=== PATIENT | female | born 1940 | race Caucasian/White ===

== ENCOUNTER → 2021-07-18 11:22 | Outpatient (CLI) | payer MEDICARE, SELFPAY ==
--- NOTE | 2021-07-18 11:33 | XR_ITS ---
FINAL REPORT CLINICAL HISTORY: HIP PAIN, no injury FINDINGS: RIGHT HIP Two views of the right hip including an AP pelvis demonstrate no acute fracture or dislocation. The joint spaces appear normal. The visualized bony structures are well aligned. No soft tissue abnormality is seen. IMPRESSION: No acute bony abnormality. Reviewed, Interpreted and Dictated by Shorty Ochoa MD Transcribed by Kaila Young Authenticated by Shorty Ochoa MD on 07/18/2021 12:57:[address] [facility]
== END ==
PROVIDERS: PCP Family Medicine; Visit Provider Family Medicine
DX: M70.61 Trochanteric bursitis, right hip (principal)
CPT/HCPCS: 73502

== ENCOUNTER → 2021-10-21 12:32 | Outpatient (CLI) | payer MEDICARE, SELFPAY ==
--- NOTE | 2021-10-21 12:58 | US_ITS ---
FINAL REPORT CLINICAL HISTORY: Edema,pain and redness for 2 years. Claudication FINDINGS: ANKLE-BRACHIAL PRESSURE INDICES Pressure indices are as follows: RIGHT LOWER EXTREMITY: Ankle-brachial pressure index: 1.2 Comments: Normal LEFT LOWER EXTREMITY: Ankle-brachial pressure index: 1.1 Comments: Normal Note is made that the thighs were noncompressible which may be due to calcified vessels. CONCLUSION: No evidence of significant obstructive peripheral vascular disease of the lower extremities Reviewed, Interpreted and Dictated by Garret Lowe III, MD Transcribed by Kaila Young Authenticated and . [facility]
== END ==
PROVIDERS: PCP Family Medicine; Visit Provider Family Medicine
DX: I70.213 Atherosclerosis of native arteries of extremities with intermittent claudication, bilateral legs (principal)
CPT/HCPCS: 93923

== ENCOUNTER → 2021-11-06 09:39 | Outpatient (CLI) | payer MEDICARE, SELFPAY ==
[2021-11-06 10:27] LABS: Basophils % 1.1 % (0.1-2.0); Eosinophils # 0.4 K/mm3 (0.0-0.4); Eosinophils % 9.8 % (0.1-12.0); Hematocrit 40.8 % (37.0-47.0); Hemoglobin 12.6 g/dL (12.2-16.2); Lymphocytes # 0.9 K/mm3 (0.7-4.5); Lymphocytes % 22.4 % (10-50); Mean Corpuscular HGB Conc 30.9 g/dL (31.8-35.4); Mean Corpuscular Hemoglobin 30.7 pg (27.0-31.2); Mean Corpuscular Volume 99.2 fl (81-99); Mean Platelet Volume 8.9 fl (7.4-10.4); Monocytes # 0.4 K/mm3 (0.1-1.0); Monocytes % 10.1 % (1.7-9.3); Neutrophils # 2.3 K/mm3 (1.8-7.8); Neutrophils % 56.5 % (37.0-80.0); Platelet Count 212 K/mm3 (142-424); Red Blood Count 4.11 M/mm3 (4.20-5.40); Red Cell Distribution Width 13.3 % (11.5-17.5)
[2021-11-06 10:51] LABS: Blood Urea Nitrogen 15 mg/dl (7-17); Estimated Glomerular Filt Rate 60 ml/min (>60); GFR (African American) 73 ML/MIN (>60)
[2021-11-06 11:56] LABS: Vitamin B12 830 pg/mL (239-931)
[2021-11-06 11:59] LABS: Folate > 20.00 ng/mL
[2021-11-07 15:10] LABS: Albumin 3.5 g/dL (2.9-4.4); Alpha-1-Globulin 0.3 g/dL (0.0-0.4); Alpha-2-Globulin 0.9 g/dL (0.4-1.0); Gamma Globulin 0.8 g/dL (0.4-1.8); Protein, Total 6.4 g/dL (6.0-8.5)
== END ==
PROVIDERS: PCP Family Medicine; Visit Provider Specialist
DX: G62.9 Polyneuropathy, unspecified (principal)
CPT/HCPCS: 36415; 82565; 82607; 82746; 84155; 84165; 84520; 85025

== ENCOUNTER 2024-03-09 09:35 | Emergency (ER) | payer MEDICARE, SELFPAY ==
[2024-03-09] VITALS (8 sets, daily range): BP systolic 120–163; BP diastolic 61–103; PULSE 80–94; RESP 16–18; TEMP 36.6–36.9; O2SAT 96–98; BMI 28.8
--- NOTE | 2024-03-09 10:04 | ED_ITS ---
Discharge Plan Prescriptions Prescriptions: New cephalexin 500 mg capsule 500 mg PO QID 5 Days Qty: 20 0RF famotidine 20 mg tablet 20 mg PO BID PRN (Reason: rash) 3 Days Qty: 6 0RF Discontinued azithromycin [Zithromax] 250 mg tablet 250 mg PO UD DOSE PK Qty: 6 0RF Rx Instructions: Take two (2) tablets today, then one (1) tablet days #2 thru #5 No Action omega 8-lwd-cti-fish oil [Fish Oil] 1,200 (144-216) mg capsule 1 cap PO DAILY multivitamin [Daily Multi-Vitamin] Tablet 1 tab PO DAILY magnesium oxide 400 mg magnesium capsule 400 mg PO DAILY Caltrate-D3 Plus Minerals 300 mg-800 unit -25 mg-0.5 mg tablet 1 tab PO DAILY dorzolamide-timolol 22.3-6.8 mg/mL drops 1 drp OP BID carboxymethylcellulose sodium [Refresh Tears] 0.5 % drops 1 drp OP BID metolazone 2.5 mg tablet 2.5 mg PO DAILY brimonidine 0.2 % drops See Rx Instructions .ROUTE .COMPLEX Patient Comments: INSTILL 1 DROP INTO EACH EYE EVERY 12 HOURS Rx Instructions: INSTILL 1 DROP INTO EACH EYE EVERY 12 HOURS mirabegron [Myrbetriq] 25 mg tablet extended release 24 hr 25 mg PO DAILY Patient Comments: TAKE 1 TABLET BY MOUTH ONCE DAILY prednisone 10 mg tablet 10 mg PO DIRECTED 9 Days Qty: 21 0RF Rx Instructions: Take 4 tablets daily for 3 days, then take 2 tablets daily for 3 days, then take 1 tablet daily for 3 days, then stop. benzonatate 100 mg capsule 100 mg PO TIDP PRN (Reason: Cough) Qty: 30 0RF Referrals Follow up/Referrals: Provider,Referral, MD [Primary Care Provider] - See instructions Activity Restrictions/Add. Instructions Additional Instructions/Restrictions: As we discussed, it appears that your rash is due to the medication called Bactrim, it is possible that the reaction is specifically due to sulfa medication. Please discontinue the Bactrim, we have disposed of it in the emergency department. I have prescribed a different antibiotic for you to take to complete your course for the wound on your leg. I have prescribed a medication called famotidine which can help with your rash. Please follow-up with your primary care doctor. Please return with any new or worsening symptoms. Clinical Impressions Clinical Impression: Fall from standing, Drug eruption Print Language Print Language: Hebrew Discharge ED Provider: Kael Polk Adult HPI General Chief complaint: Fall Stated complaint: Fall Time Seen by Provider: 03/09/24 10:04 Mode of Arrival: EMS Source of Information: Patient and EMS Limitations: No Limitations Description of Symptoms (Recalled from ER Triage Doc. by RN): pt presents to ED from home via ems for fall and wound on right acuña. pt c/o right hip pain. pt reports she got tripped and had a fall. pt was given abx two days ago for leg wound. pt reports today she took abx this am and began to break out in rash. History of Present Illness HPI narrative: The patient presents with a chief complaint of experiencing a fall at home. She reports having a couple of bruises over her knees but is unsure of the exact cause of the fall. The patient mentions a small dog possibly being involved, stating There's a little dog I think is stuck in front of me. She denies hitting her head during the fall. The patient complains of pain in her leg, particularly around the knee area, and also reports pain in her hip area when asked. She denies any neck pain, numbness, or tingling in her legs. The patient states she is Just checking to make sure I'm okay following the fall. The patient has no known allergies to antibiotics and reports no itching or other symptoms. Please note that above description of symptoms, in this electronic medical record under categorization of recalled from ER triage doctor by RN are reflective of an initial nursing assessment, however, is not reflective of my full history and physical exam that was personally taken and clarified. Consequentially, this preceding description of symptoms, which may include the patient's categorized chief complaint in the EMR, do not reflect my personal clinical impression, and the ultimate description of history of present illness and patient stated complaints should be deferred to this section of the note. Unless stated otherwise or congruent with this section of the note, additional signs, symptoms, or incongruence should be interpreted as inaccurate with my clinical impression. Related Data Home Medications ?Medication ?Instructions ?Recorded ?Confirmed calcium 300 mg-D3 20 mcg-magnesium 1 tab PO DAILY 11/06/21 09/25/23 25 mg-coppr 0.5 vy-icop-hawz tablet (Caltrate-D3 Plus Minerals) carboxymethylcellulose sodium 0.5 1 drp ophthalmic (eye) BID 11/06/21 09/25/23 % eye drops (Refresh Tears) dorzolamide 22.3 mg-timolol 6.8 1 drp ophthalmic (eye) BID 11/06/21 09/25/23 mg/mL eye drops magnesium oxide 400 mg PO DAILY 11/06/21 09/25/23 metolazone 2.5 mg tablet 2.5 mg PO DAILY 11/06/21 09/25/23 multivitamin (Daily Multi-Vitamin 1 tab PO DAILY 11/06/21 09/25/23 tablet) omega 8-owl-qjy-fish oil 1,200 mg 1 cap PO DAILY 11/06/21 09/25/23 (144 mg-216 mg) capsule (Fish Oil) brimonidine 0.2 % eye drops See Rx Instructions .Route .COMPLEX 09/25/23 09/25/23 mirabegron 25 mg tablet,extended 25 mg PO DAILY 09/25/23 09/25/23 release 24 hr (Myrbetriq) Previous Rx's ?Medication ?Instructions ?Recorded benzonatate 100 mg capsule 100 mg PO TIDP PRN Cough #30 caps 09/25/23 prednisone 10 mg tablet 10 mg PO DIRECTED 9 days #21 09/25/23 tabs cephalexin 500 mg capsule 500 mg PO QID 5 days #20 caps 03/09/24 famotidine 20 mg tablet 20 mg PO BID PRN rash 3 days #6 03/09/24 tabs Allergies Allergy/AdvReac Type Severity Reaction Status Date / Time sulfamethoxazole (From Allergy Rash Verified 03/09/24 12:50 Bactrim) trimethoprim (From Bactrim) Allergy Rash Verified 03/09/24 12:50 PFSH PFSH Disclaimer: The information contained in this section may have been updated after the patient was seen, as this information can be updated by other users. Social History Smoking Status: Never smoker alcohol intake: never substance use type: denies use current occupational status: retired Travel in the last 8 weeks: Inside the [place] household members: family housing: house Other Medical History Have you received the Pneumonia Vaccine: No ROS Obtained: Yes other As per HPI Physical Exam General General appearance: alert and in no apparent distress Head Head exam: atraumatic and normocephalic Eye Eye exam: Present normal appearance Neck Neck exam: Present normal inspection Chest Chest inspection: Present normal inspection and symmetric chest wall rise Respiratory Respiratory exam: Present normal lung sounds bilaterally; Absent respiratory distress Cardiovascular Cardiovascular exam: Present regular rate and normal rhythm Abdominal Exam Abdominal exam: Present soft Neurological Exam Neurological exam: Present alert and oriented X3 Psychiatric Psychiatric exam: Present normal affect and normal mood Skin Skin exam: Present warm and dry Other Other exam information: Diffuse rash on abdominal and chest wall area consistent with drug eruption, sparing mucous membranes, area of shallow ulceration and surrounding erythema on right ventral leg. No overt focal bony tenderness to palpation. No clinical evidence of trauma above the clavicles. Patient at baseline per family member who later presents to bedside Medical Decision Making Medical Records Medical records reviewed: Yes I reviewed the patient's medical records. Screening: Per USPSTF and CDC recommendations, given the prevalence of disease in our region, it is our hospital?s policy to screen for HIV and viral Hepatitis for all patients aged 18 and over and those with ongoing risk factors. Jah Inquiry Pt receiving controlled substance: No Vital Signs: 03/09/24 09:35 03/09/24 10:00 03/09/24 10:30 Temperature 98.4 F Temperature Source Oral Pulse Rate 90 84 Pulse Rate [Left Radial] 94 H Respiratory Rate 16 Blood Pressure 163/81 H 152/70 H Blood Pressure [Right Arm] 133/103 H Blood Pressure Mean 109 Blood Pressure Mean [Right Arm] 113 02 Sat by Pulse Oximetry 98 98 97 Oxygen Delivery Method Room Air Room Air Room Air 03/09/24 11:00 03/09/24 11:30 03/09/24 12:00 Temperature Temperature Source Pulse Rate 80 81 86 Pulse Rate [Left Radial] Respiratory Rate Blood Pressure 148/69 H 137/68 138/68 Blood Pressure [Right Arm] Blood Pressure Mean 98 95 Blood Pressure Mean [Right Arm] 02 Sat by Pulse Oximetry 97 98 98 Oxygen Delivery Method Room Air Room Air Room Air 03/09/24 12:30 03/09/24 13:25 Temperature 98 F Temperature Source Pulse Rate 87 89 Pulse Rate [Left Radial] Respiratory Rate 18 Blood Pressure 139/72 120/61 Blood Pressure [Right Arm] Blood Pressure Mean Blood Pressure Mean [Right Arm] 02 Sat by Pulse Oximetry 98 Oxygen Delivery Method Room Air Lab Data Lab Results 03/09/24 09:37: HIV 1&2 Antibody Rapid Nonreactive Orders (Tests/Meds): ED MEDICATIONS Discontinued Medications Generic Name Dose Route Start Last Admin Trade Name Anne PRN Reason Stop Dose Admin Acetaminophen 1,000 mg 03/09/24 12:20 03/09/24 12:25 Acetaminophen 500mg Tab PO 03/09/24 12:21 1,000 mg ONCE ONE Administration Ibuprofen 400 mg 03/09/24 12:20 03/09/24 12:25 Ibuprofen 400 Mg Tablet PO 03/09/24 12:21 400 mg ONCE ONE Administration ORDERS Category Date Time Status Knee XR right 3 views [XR knee RT 3V] Stat Exams 03/09/24 10:12 Completed XR ankle RT min 3V Stat Exams 03/09/24 10:12 Completed XR femur RT 2V Stat Exams 03/09/24 10:12 Completed XR hip RT 2-3V w/pelvis Stat Exams 03/09/24 10:12 Completed XR tibia fibula RT 2V Stat Exams 03/09/24 10:12 Completed HIV (1&2) Antibody Rapid Stat Lab 03/09/24 09:37 Completed Medical Decision Narrative: Patient with history and exam per above presenting for evaluation of nonfocal leg pain after fall, as well as rash Diagnoses considered include drug eruption, likely precipitated by trimethoprim/sulfamethoxazole which was recently initiated for cellulitis, cellulitis, fracture, no clinical evidence of trauma to the head or neck ED workup and treatment included: ED MEDICATIONS Discontinued Medications Generic Name Dose Route Start Last Admin Trade Name Anne PRN Reason Stop Dose Admin Acetaminophen 1,000 mg 03/09/24 12:20 03/09/24 12:25 Acetaminophen 500mg Tab PO 03/09/24 12:21 1,000 mg ONCE ONE Administration Ibuprofen 400 mg 03/09/24 12:20 03/09/24 12:25 Ibuprofen 400 Mg Tablet PO 03/09/24 12:21 400 mg ONCE ONE Administration ORDERS Category Date Time Status Knee XR right 3 views [XR knee RT 3V] Stat Exams 03/09/24 10:12 Completed XR ankle RT min 3V Stat Exams 03/09/24 10:12 Completed XR femur RT 2V Stat Exams 03/09/24 10:12 Completed XR hip RT 2-3V w/pelvis Stat Exams 03/09/24 10:12 Completed XR tibia fibula RT 2V Stat Exams 03/09/24 10:12 Completed HIV (1&2) Antibody Rapid Stat Lab 03/09/24 09:37 Completed Imaging was independently visualized and interpreted by me, significant for no acute findings Please refer to radiology report for full details. My clinical impression at this time is most consistent with drug eruption, upon repeat evaluation patient denies any pain in her reportedly affected extremity. I discussed my clinical impression with patient and answered all questions. At this time, the evidence for any other entities in the differential is insufficient to warrant any further testing or ED observation. This was explained to the patient. The patient was advised that persistent or worsening symptoms require further evaluation. Critical Care Critical Care Time Critical Care Time: No
--- NOTE | 2024-03-09 10:05 | PC.NURSE ---
Daughter at BS
--- NOTE | 2024-03-09 10:12 | XR_ITS ---
PROCEDURE INFORMATION: Exam: XR Right Ankle Exam date and time: 03/09/2024 11:53 AM Age: 83 years old Clinical indication: Injury or trauma; Fall; Other: Pain; Additional info: Fall, reported hip, leg pain, nonfocal, HX dementi TECHNIQUE: Imaging protocol: Radiologic exam of the right ankle. Views: 3 or more views. COMPARISON: CR XR TIBIA FIBULA RT 2V 03/09/2024 11:53 AM FINDINGS: Bones/joints: Osseous structures are intact. No fracture or malalignment. Visualized joint surfaces are preserved. Soft tissues: Unremarkable. IMPRESSION: Negative exam. No acute bony abnormalities.
--- NOTE | 2024-03-09 10:12 | XR_ITS ---
PROCEDURE INFORMATION: Exam: XR Right Hip Exam date and time: 03/09/2024 11:53 AM Age: 83 years old Clinical indication: Injury or trauma; Fall; Other: Pain; Additional info: Fall, reported hip, leg pain, nonfocal, HX dementi TECHNIQUE: Imaging protocol: Radiologic exam of the right hip. Views: 2 or 3 views hip with pelvis when performed. COMPARISON: CR XR FEMUR RT 2V 03/09/2024 11:53 AM FINDINGS: Limited: Study is suboptimal due to obscuring overlying extraneous structure presumed to represent a catheter. Bones/joints: Mild degenerative changes right hip joint consisting of mild joint space narrowing and subchondral sclerosis. No fracture or malalignment. Soft tissues: Unremarkable. IMPRESSION: Mild degenerative changes right hip joint. No acute bony abnormalities.
--- NOTE | 2024-03-09 10:12 | XR_ITS ---
PROCEDURE INFORMATION: Exam: XR Right Femur Exam date and time: 03/09/2024 11:53 AM Age: 83 years old Clinical indication: Injury or trauma; Fall; Other: Pain; Additional info: Fall, reported hip, leg pain, nonfocal, HX dementi TECHNIQUE: Imaging protocol: Radiologic exam of the right femur. Views: 2 views. COMPARISON: CR XR HIP RT 2-3V W/PELVIS 03/09/2024 11:53 AM FINDINGS: Bones/joints: Unremarkable. No fracture, malalignment or deformity detected. No significant degenerative joint changes. Soft tissues: Unremarkable. IMPRESSION: Normal exam.
--- NOTE | 2024-03-09 10:12 | XR_ITS ---
PROCEDURE INFORMATION: Exam: XR Right Knee Exam date and time: 03/09/2024 11:53 AM Age: 83 years old Clinical indication: Injury or trauma; Fall; Other: Pain; Additional info: Fall, reported hip, leg pain, nonfocal, HX dementi TECHNIQUE: Imaging protocol: Radiologic exam of the right knee. Views: 3 views. COMPARISON: CR XR ANKLE RT MIN 3V 03/09/2024 11:53 AM FINDINGS: Bones/joints: There are moderate degenerative changes involving the medial and lateral knee compartments as well as the patellofemoral joint with joint space narrowing, subchondral sclerosis and mild marginal spurring. Findings are most pronounced within the medial knee compartment. There is no fracture, dislocation, malalignment or underlying osseous lesion detected. Soft tissues: No significant joint effusion. IMPRESSION: Moderate tricompartmental osteoarthritis. No acute bony abnormalities.
--- NOTE | 2024-03-09 10:12 | XR_ITS ---
PROCEDURE INFORMATION: Exam: XR Right Tibia and Fibula Exam date and time: 03/09/2024 11:53 AM Age: 83 years old Clinical indication: Injury or trauma; Fall; Other: Pain; Additional info: Fall, reported hip, leg pain, nonfocal, HX dementi TECHNIQUE: Imaging protocol: Radiologic exam of the right tibia and fibula. Views: 2 views. COMPARISON: CR XR ANKLE RT MIN 3V 03/09/2024 11:53 AM FINDINGS: Bones/joints: Osseous structures are intact. No fracture or malalignment. Visualized joint surfaces are preserved. Soft tissues: Unremarkable. IMPRESSION: Negative exam. No acute bony abnormalities.
[2024-03-09 11:54] LABS: HIV (1&2) Antibody Rapid NONREACTIVE (NONREACTIVE)
--- NOTE | 2024-03-09 11:58 | PC.NURSE ---
XR AT BEDSIDE
[2024-03-09] MEDS: IBUPROFEN 400 MG TABLET PO (12:25)
[2024-03-09] MEDS: ACETAMINOPHEN 500MG TAB 1000 MG PO (12:25)
== END 2024-03-09 13:26 | disposition home or self-care (01) ==
PROVIDERS: Emergency Provider Emergency Medicine
DX: L27.0 Generalized skin eruption due to drugs and medicaments taken internally (principal); R21 Rash and other nonspecific skin eruption; M25.551 Pain in right hip; M25.561 Pain in right knee; W01.0XXA Fall on same level from slipping, tripping and stumbling without subsequent striking against object, initial encounter; Y93.9 Activity, unspecified; Y92.009 Unspecified place in unspecified non-institutional (private) residence as the place of occurrence of the external cause
CPT/HCPCS: 73502; 73552; 73562; 73590; 73610; 87389; 99283

== ENCOUNTER 2024-04-21 10:30 | Inpatient (IN) | payer MEDICARE, SELFPAY ==
[2024-04-21] VITALS (7 sets, daily range): BP systolic 103–144; BP diastolic 39–78; PULSE 68–110; RESP 16–22; TEMP 36.6–38.4; O2SAT 94–99; BMI 20.3; BMI 23.7
--- NOTE | 2024-04-21 11:46 | ECG_ITS ---
APPROVED REPORT Exam: Resting ECG HR:88 bpm ECG Measurements Heart Rate 88 AXES SD 132 P 35 QRSd 97 QRS 24 QT 429 T 21 QTc 475 Conclusion Sinus rhythm Prolonged QT Electronically signed by : WINNIE ABRAHAM, 04/22/2024 15:17:24
--- NOTE | 2024-04-21 12:09 | XR_ITS ---
FINAL REPORT CLINICAL HISTORY: AMS, cougth COMPARISON: None FINDINGS: The heart size is normal. The mediastinum is normal. There is no focal infiltrate or edema. There are no pleural effusions. There is no pneumothorax. There is thoracic scoliosis convex to the left measuring 25 degrees. IMPRESSION: No acute cardiopulmonary process Reviewed, Interpreted and Dictated by Shorty Ochoa MD Transcribed by Mari Sparks Authenticated and [facility]
[2024-04-21 12:19] LABS: VBG Base Excess 1.2 mmol/L (-2.4-2.3); VBG HCO3 25.8 mmol/L (23-30); VBG PCO2 41.1 mmol/L (35-51); VBG PH 7.42 mmol/L (7.31-7.41); VBG PO2 35.8 mmol/L (28-40)
[2024-04-21 12:21] LABS: Lactate Venous 2.9 mmol/L (0.4-2.0)
[2024-04-21 12:22] LABS: Basophils % 0.2 % (0.1-2.0); Hematocrit 34.7 % (37.0-47.0); Hemoglobin 11.7 g/dL (12.2-16.2); Lymphocytes # 0.5 K/mm3 (0.7-4.5); Lymphocytes % 5.6 % (10-50); Mean Corpuscular HGB Conc 33.7 g/dL (31.8-35.4); Mean Corpuscular Hemoglobin 29.1 pg (27.0-31.2); Mean Corpuscular Volume 86.3 fl (81-99); Mean Platelet Volume 10.1 fl (7.4-10.4); Monocytes # 0.7 K/mm3 (0.1-1.0); Neutrophils # 8.2 K/mm3 (1.8-7.8); Neutrophils % 86.7 % (37.0-80.0); Platelet Count 219 K/mm3 (142-424); Red Blood Count 4.02 M/mm3 (4.20-5.40); Red Cell Distribution Width 14.4 % (11.5-17.5); White Blood Count 9.4 K/mm3 (4.8-10.8)
[2024-04-21 12:27] LABS: Albumin Level 3.8 g/dl (3.5-5.0); Chloride 87 mmol/L (98-107)
[2024-04-21 12:28] LABS: Microscopic, Urine URINE MICROSCOPIC (MICROSCOPIC)
[2024-04-21 12:28] LABS: Coronavirus 19, PCR Not Detected (NotDetected); Influenza A, PCR Not Detected (NotDetected); Influenza B, PCR Not Detected (NotDetected)
[2024-04-21 12:28] LABS: Sodium 127 mmol/L (136-145)
[2024-04-21 12:30] LABS: Alanine Aminotransferase 36 U/L (12-78); Albumin/Globulin Ratio 1.2 (1.1-1.8); Anion Gap 11.1 mEq/L (5-15); Aspartate Amino Transferase 75 U/L (14-36); Blood Urea Nitrogen 21 mg/dl (7-17); Carbon Dioxide 31 mmol/L (22.0-30.0); Creatinine Clearance Estimated 27 mL/min (50-200); Estimated Glomerular Filt Rate 39 ml/min (>60); GFR (African American) 47 ML/MIN (>60); Globulin 3.3 g/dL (1.3-3.2); Total Protein,Serum 7.1 g/dl (6.3-8.2)
[2024-04-21 12:31] LABS: Alkaline Phosphatase 72 U/L (38-126); Bilirubin,Total 2.2 mg/dl (0.2-1.3); Calcium 8.4 mg/dl (8.4-10.2); Chol/HDL Ratio 5.8 (1-3.5); Cholesterol 209 mg/dl (140-200); Glucose 116 mg/dl (74-100); HDL Cholesterol 36 mg/dl (40-60); Lipase 81 U/L (23-300); Magnesium 1.6 mg/dl (1.6-2.3); Triglycerides 116 mg/dl (30-150); VLDL Cholesterol 23 mg/dL (0-40)
[2024-04-21 12:32] LABS: Potassium 2.1 mmoL/L (3.5-5.1); Salicylate < 1.0 mg/dL (2.0-20.0)
[2024-04-21 12:33] LABS: Lactic Acid 2.7 mmol/L (0.7-2.1)
[2024-04-21 12:34] LABS: MANUAL DIFFERENTIAL MANUAL DIFFERENTIAL (MANUAL DIFF)
[2024-04-21 12:42] LABS: Direct LDL Cholesterol 128.63 mg/dL (100-129)
[2024-04-21 12:45] LABS: C-Reactive Protein 199.2 mg/L (0-4)
--- NOTE | 2024-04-21 12:45 | ED_ITS ---
Discharge Plan Disposition Patient Disposition: Admitted Clinical Impressions Clinical Impression: Urinary tract infection, Encephalopathy acute Discharge ED Provider: Ismael Alvarado General Adult HPI General Chief complaint: Altered Mental Status Stated complaint: freg. incontinance, confusion Time Seen by Provider: 04/21/24 11:17 Mode of Arrival: Ambulatory Source of Information: Patient and Relative Limitations: No Limitations Description of Symptoms (Recalled from ER Triage Doc. by RN): pt presents to ED with daughter in law for c/o confusion, urinary incontinence. symptoms began over gi, but pts family had some keflex at home, they gave to pt to help with symptoms. pt presents today for symptoms increasing. History of Present Illness HPI narrative: Please note that above description of symptoms, in this electronic medical record under categorization of recalled from ER triage doctor by RN are reflective of an initial nursing assessment, however, is not reflective of my full history and physical exam that was personally taken and clarified. Consequentially, this preceding description of symptoms, which may include the patient's categorized chief complaint in the EMR, do not reflect my personal clinical impression, and the ultimate description of history of present illness and patient stated complaints should be deferred to this section of the note. Unless stated otherwise or congruent with this section of the note, additional signs, symptoms, or incongruence should be interpreted as inaccurate with my clinical impression. Related Data Home Medications ?Medication ?Instructions ?Recorded ?Confirmed dorzolamide 22.3 mg-timolol 6.8 1 drp ophthalmic (eye) BID 11/06/21 04/21/24 mg/mL eye drops metolazone 2.5 mg tablet 2.5 mg PO DAILY 11/06/21 04/21/24 multivitamin (Daily Multi-Vitamin 1 tab PO DAILY 11/06/21 04/21/24 tablet) mirabegron 25 mg tablet,extended 25 mg PO DAILY 09/25/23 04/21/24 release 24 hr (Myrbetriq) Allergies Allergy/AdvReac Type Severity Reaction Status Date / Time sulfamethoxazole (From Allergy Rash Verified 03/09/24 12:50 Bactrim) trimethoprim (From Bactrim) Allergy Rash Verified 03/09/24 12:50 PFSH PFSH Disclaimer: The information contained in this section may have been updated after the patient was seen, as this information can be updated by other users. Social History Smoking Status: Never smoker alcohol intake: never substance use type: denies use current occupational status: retired Travel in the last 8 weeks: Inside the [place] household members: family housing: house Have you lived/traveled outside US in past 30 days?: No Contact w/someone who lives/traveled outside US past 30 days?: No Exposure to someone with infectious disease in past 14 days?: No Do you have a fever (greater than 100.4 F or 38 C)?: No Have you tested positive for COVID-19: No Exposed to someone with COVID-19 in past 14 days?: No Do you have a sore throat?: No Do you have a cough?: No Do you have any weakness?: No Do you have any diarrhea?: No Are you experiencing any unusual bleeding?: No Do you have any muscle aches/pain?: No Do you have any abdominal pain?: No Are you experiencing loss of taste or smell?: No Other Medical History Have you received the Pneumonia Vaccine: No ROS Obtained: Yes All systems reviewed & no additional complaints except as documented Physical Exam General General appearance: alert Head Head exam: atraumatic and normocephalic Eye Eye exam: Present normal appearance, PERRL and EOMI Neck Neck exam: Present normal inspection, full ROM and trachea midline Respiratory Respiratory exam: Absent respiratory distress, wheezes, stridor, accessory muscle use or prolonged expiratory phase Cardiovascular Cardiovascular exam: Present other (Pulses equal symmetric in upper and lower extremities) Abdominal Exam Abdominal exam: Present soft; Absent distention, tenderness or pulsatile mass Extremities Exam Extremities exam: Absent edema Neurological Exam Neurological exam: Present alert, oriented X3 and CN II-XII intact; Absent motor sensory deficit Skin Skin exam: Present warm and dry; Absent diaphoresis or erythema Medical Decision Making Medical Records Medical records reviewed: Yes I reviewed the patient's medical records. Screening: Per USPSTF and CDC recommendations, given the prevalence of disease in our region, it is our hospital?s policy to screen for HIV and viral Hepatitis for all patients aged 18 and over and those with ongoing risk factors. Jah Inquiry Pt receiving controlled substance: No Jah was queried for this patient: No Vital Signs: 04/21/24 11:20 04/21/24 12:22 04/21/24 13:18 Temperature 97.9 F Temperature Source Oral Pulse Rate 92 H 85 Pulse Rate [Left Radial] 68 Respiratory Rate 19 19 22 Blood Pressure 128/59 L 116/55 L Blood Pressure [Right Arm] 142/67 H Blood Pressure Mean 76 Blood Pressure Mean [Right Arm] 92 02 Sat by Pulse Oximetry 99 96 97 Oxygen Delivery Method Room Air Room Air 04/21/24 13:34 04/21/24 14:01 Temperature Temperature Source Pulse Rate 82 92 H Pulse Rate [Left Radial] Respiratory Rate 20 22 Blood Pressure 123/59 L 144/78 H Blood Pressure [Right Arm] Blood Pressure Mean 71 88 Blood Pressure Mean [Right Arm] 02 Sat by Pulse Oximetry 96 98 Oxygen Delivery Method Lab Data Lab Results 04/21/24 12:08: WBC 9.4, RBC 4.02 L, Hgb 11.7 L, Hct 34.7 L, MCV 86.3, MCH 29.1, MCHC 33.7, RDW 14.4, Plt Count 219, MPV 10.1, Neut % (Auto) 86.7 H, Lymph % (Auto) 5.6 L, [place] % (Auto) 7.0, Eos % (Auto) 0.0 L, Baso % (Auto) 0.2, Neut # (Auto) 8.2 H, Lymph # (Auto) 0.5 L, [place] # (Auto) 0.7, Eos # (Auto) 0.0, Baso # (Auto) 0.0, Total Counted 100, Neutrophils % (Manual) 88 H, Lymphocytes % (Manual) 11, Monocytes % (Manual) 1 L, Platelet Estimate Normal, RBC Morphology Normal, PT 11.7, INR 1.05, APTT 37.6 H, Sodium 127 L, Potassium 2.1 L*, Chloride 87 L, Carbon Dioxide 31 H, Anion Gap 11.1, BUN 21 H, Creatinine 1.30 H, Estimated Creat Clear 27, Estimated GFR 39 L, Est GFR ( Amer) 47 L, G lucose 116 H, Lactate 2.7 H, Calcium 8.4, Magnesium 1.6, Total Bilirubin 2.2 H, AST 75 H, ALT 36, Alkaline Phosphatase 72, Troponin I 0.08 H, C-Reactive Protein 199.2 H, NT-Pro-B Natriuret Pep 4270 H, Total Protein 7.1, Albumin 3.8, Globulin 3.3 H, Albumin/Globulin Ratio 1.2, Triglycerides 116, Cholesterol 209 H, LDL Cholesterol Direct 128.63, VLDL Cholesterol 23, HDL Cholesterol 36 L, C holesterol/HDL Ratio 5.8 H, Lipase 81, Procalcitonin 4.89 H, TSH 2.04, Thyroxine (T4) 8.2, Salicylates < 1.0 L 04/21/24 12:13: VBG pH 7.42 H, VBG pCO2 41.1, VBG pO2 35.8, VBG HCO3 25.8, VBG Total CO2 27.0, VBG O2 Saturation 68.0, VBG Base Excess 1.2, VBG Lactic Acid 2.9 H 04/21/24 12:15: SARS-CoV-2 (PCR) Not detected, Influenza A Untype (PCR) Not detected, Influenza Type B (PCR) Not detected 04/21/24 12:22: Urine Color [place], Urine Appearance Cloudy, Urine pH 6.0, Ur Specific [place] 1.020, Urine Protein 1+ A, Urine Glucose (UA) Negative, Urine Ketones Negative, Urine Blood 1+ A, Urine Nitrate Positive A, Urine Bilirubin Negative, Urine Urobilinogen 4.0, Ur Leukocyte Esterase 1+ A, Urine RBC 3-5, Urine WBC 10-20, Ur Squamous Epith Cells Occasional, Urine Bacteria 3+ 04/21/24 12:08 04/21/24 12:08 Orders (Tests/Meds): ED MEDICATIONS Generic Name Dose Route Start Last Admin Trade Name Freq PRN Reason Stop Dose Admin Potassium Chloride/Water 100 mls @ 100 mls/hr 04/21/24 12:45 Potassium Chloride 10meq/100ml Ivpb IV 04/21/24 15:44 Q1H MALENA Discontinued Medications Generic Name Dose Route Start Last Admin Trade Name Freq PRN Reason Stop Dose Admin Magnesium Sulfate 2 gm in 50 mls @ 50 mls/hr 04/21/24 12:48 04/21/24 13:11 Magnesium Sulfate 2gm/50ml Premix IV 04/21/24 13:47 50 mls/hr ONCE ONE Administration Magnesium Sulfate 2 gm in 50 mls @ 50 mls/hr 04/21/24 12:48 04/21/24 13:59 Magnesium Sulfate 2gm/50ml Premix IV 04/21/24 13:47 50 mls/hr ONCE ONE Administration Lactated Ringer's 1,000 mls @ 999 mls/hr 04/21/24 13:03 04/21/24 13:12 Lactated Ringer's 1000 Ml Bag IV 04/21/24 14:03 999 mls/hr .Q1H1M ONE Administration Ceftriaxone Sodium 2 gm/ 100 mls @ 200 mls/hr 04/21/24 13:33 Sodium Chloride IV 04/21/24 14:02 ONCE ONE ORDERS Category Date Time Status XR chest portable Stat Exams 04/21/24 12:09 Taken CRP [C-Reactive Protein] Stat Lab 04/21/24 12:08 Completed Complete Blood Count Auto Diff Stat Lab 04/21/24 12:08 Completed Comprehensive Metabolic Panel Stat Lab 04/21/24 12:08 Completed Hep C Ab with Reflex to RNA Stat Lab 04/21/24 12:08 Received Lactic Acid Stat Lab 04/21/24 12:08 Completed Lipase Stat Lab 04/21/24 12:08 Completed Lipid Panel Stat Lab 04/21/24 12:08 Completed Magnesium Stat Lab 04/21/24 12:08 Completed NT Pro Brain Natriuretic Pep. Stat Lab 04/21/24 12:08 Completed PT INR [Prothrombin Time INR] Stat Lab 04/21/24 12:08 Completed PTT [Activated Partial Thrombo Time] Stat Lab 04/21/24 12:08 Completed Procalcitonin Stat Lab 04/21/24 12:08 Completed Rapid PCR Covid and Flu A/B Stat Lab 04/21/24 12:15 Completed Salicylate Stat Lab 04/21/24 12:08 Completed T4 (Thyroxine) Stat Lab 04/21/24 12:08 Completed TSH [Thyroid Stimulating Hormone] Stat Lab 04/21/24 12:08 Completed Troponin I Q3H Lab 04/21/24 15:15 Ordered Troponin I Q3H Lab 04/21/24 18:15 Ordered Troponin I Stat Lab 04/21/24 12:08 Completed Urinalysis and Microscopic Stat Lab 04/21/24 12:22 Completed Blood Culture Stat Micro 04/21/24 12:43 Received Urine Culture Stat Micro 04/21/24 12:22 Received Venous Blood Gas Stat RT 04/21/24 12:13 Completed Medical Decision Narrative: 83-year-old female presenting with altered mental status. Daughter states this is beginning worse over the past couple of days, but has been a long time in development and thinks she may be developing dementia. Patient denying any acute complaints. Daughter states that over the past 2 or 3 days, patient has been becoming increasingly weak, incontinent of urine and more confused. No vomiting, fevers, chills, complaints otherwise. Usually independent, able to ambulate without issue, this is a moderate change from her baseline. It should be noted that patient has tension lipidemia, dementia, bladder incontinence at baseline which is likely complicating care. History was obtained via conversation with primarily with daughter. On arrival, patient hemodynamically stable, alert, oriented only to person appropriate, GCS 15, moving all extremities spontaneously, pupils equal and reactive to light. Full physical exam performed and significant for very clinically well-appearing patient. Normotensive, nontachycardic and nontachypneic. Abdomen soft, nontender, nondistended. No overlying skin change. Lungs are clear bilaterally. Normal S1-S2, no murmurs gallops or rubs. No lower extremity edema. Neurologically intact otherwise. Differential includes sepsis, metabolic encephalopathy, endocrinologic encephalopathy, urinary tract infection, pneumonia, ACS, OK, CHF, iatrogenic, polypharmacy, among others. Patient placed on continuous cardiac monitoring and continuous pulse ox with initial blood pressure 142/67, heart rate 68, saturation 98 % on room air. Independent interpretation of EKG shows sinus rhythm 88 bpm with no acute ischemic change. TX 132, QRS 97, QTc 475. Patient given magnesium for this IV.Workup independently interpreted and significant for normal white count, nonactionable CBC. Patient's VBG with lactate 2.9, otherwise nonactionable. Patient hyponatremic, hypokalemic, SAEID with creatinine 1.3 and lactate 2.7. LFTs normal. Lipase negative. Patient given IV potassium for hypokalemia. On independent interpretation of imaging, patient has no pneumonia. See radiology read for full review of final results. UA with concern for UTI. On reevaluation, patient still remains at baseline. Fluids were given given no evidence of fluid overload on chest x-ray, but elevated creatinine and infectious process. Ceftriaxone also given 2 g given patient presentation, workup, history, this most likely represents UTI and metabolic encephalopathy. Because patient high risk for clinical decompensation, deemed appropriate for inpatient admission. Results were relayed to patient who voiced understanding and patient was agreeable to inpatient admission and management. Patient was admitted to the hospital for further definitive management. Director Business Integration disclaimer Much of this encounter note is an electronic guide dog trainer spoken language to printed text. Electronic guide dog trainer of the spoken language may permit errors. Although I have reviewed the note, some errors may still exist. Critical Care Critical Care Time Critical Care Time: No
[2024-04-21 12:47] LABS: Activated Partial Thrombo Time 37.6 seconds (22.8-30.6); INR 1.05 (0.9-1.1); NT Pro Brain Natriuretic Pep. 4270 pg/mL (0-450); Prothrombin Time 11.7 seconds (10.1-12.5)
[2024-04-21 12:50] LABS: Troponin I 0.08 ng/ml (0.00-0.034)
[2024-04-21 12:53] LABS: Procalcitonin 4.89 ng/mL (0.0-2.0)
[2024-04-21 12:54] LABS: T4 (Thyroxine) 8.2 ug/dl (5.53-11.0)
[2024-04-21 13:07] LABS: Thyroid Stimulating Hormone 2.04 uIU/mL (0.465-4.68)
[2024-04-21 13:10] LABS: Lymphocytes % 11 % (10-50); Monocytes % 1 % (2-9); Neutrophils % 88 % (42-76); Platelet Estimate Normal; RBC Morphology Normal; Total Cells Counted 100
[2024-04-21 13:11] LABS: Appearance,Urine CLOUDY (Clear); Bilirubin,Urine Negative (Negative); Blood, Urine 1+ (Negative); Color,Urine ORANGE (Yellow); Glucose,Urine (UA) Negative (Negative); Ketones,Urine Negative (Negative); Leukocyte Esterase,Urine 1+ (Negative); Nitrate,Urine POSITIVE (Negative); Protein,Urine 1+ (Negative)
[2024-04-21] MEDS: MAGNESIUM SULFATE IN WATER 2 GM/50 ML PIGGYBACK IV ×2 (13:11→13:59)
[2024-04-21] MEDS: LACTATED RINGERS 1000ML 1,000 ML 999 ML IV (13:12)
[2024-04-21 13:31] LABS: Bacteria,Urine 3+ /lpf; Squamous Epithelial Cell,Urine Occasional #/hpf (0-5)
--- NOTE | 2024-04-21 13:59 | PC.NURSE ---
DR ABRAHAM SPEAKING WITH DR GROSS FOR ADMISSION
--- NOTE | 2024-04-21 14:41 | PC.NURSE ---
INVESTMENT ANALYST NOTIFIED OF ADMISSION
--- NOTE | 2024-04-21 15:03 | HMH.PHAINT1 ---
Pharmacy Intervention Comments: MEDICATION RECONCILIATION COMPLETED ON PATIENT USING EXTERNAL FILL HISTORY FROM PHARMACY. -GIGI SUNSHINE, OPALD
--- NOTE | 2024-04-21 15:06 | PC.NURSE ---
ATTEMPTED TO CALL REPORT
--- NOTE | 2024-04-21 15:11 | PC.NURSE ---
REPORT CALLED TO HALLIE ZAMUDIO
--- NOTE | 2024-04-21 15:35 | PC.NURSE ---
arrived by stretcher from ED
[2024-04-21 16:22] LABS: Reflex Lactic Add Lactic Reflex
[2024-04-21] MEDS: KCl 10mEq/100ml 100 ML 100 MEQ IV ×3 (16:44→18:53)
[2024-04-21] MEDS: 0.9 % SODIUM CHLORIDE 1000ML 1,000 ML 75 ML IV (16:44)
[2024-04-21 16:51] LABS: Troponin I 0.05 ng/ml (0.00-0.034)
[2024-04-21] MEDS: CEFTRIAXONE SODIUM 2 GM in 0.9 % SODIUM CHLORIDE 100 ML IV (16:53)
[2024-04-21 17:31] LABS: Lactic Acid Follow Up (RFLX 1) 1.5 mmol/L (0.7-2.1)
[2024-04-21] MEDS: ACETAMINOPHEN 325MG TAB 650 MG PO (17:41)
--- NOTE | 2024-04-21 18:20 | P.HP_ITS ---
History of Present Illness *Admission Date: 04/21/24 *Reason for visit:: Confusion *History of present illness: Ms. Villegas is an 83 year old female patient of [facility], who typically sees Dr. Hall for her primary medical care. She brought to the ER today with a 3 day history of worsening confusion, generalized weakness and urinary incontinence. She has a history of memory loss, but does not have a formal diagnosis of dementia. She takes Metolazone daily due to high blood pressure and lower extremity edema. 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 Family and ER record provides history as patient is confused [facility] Disclaimer: The information contained in this section may have been updated after the patient was seen, as this information can be updated by other users. Medical History (Updated 04/21/24 @ 18:34 by Earnest Mosley MD) OAB (overactive bladder) HTN (hypertension) Lower extremity edema Glaucoma Osteoarthritis Vascular dementia Venous stasis ulcer Surgical History (Updated 04/21/24 @ 18:26 by Earnest Mosley MD) History of bladder surgery S/P bunionectomy Family History No significant family history Social History Smoking Status: Former smoker alcohol intake: never substance use type: denies use current occupational status: retired Travel in the last 8 weeks: Inside the [place] household members: family housing: house Have you lived/traveled outside US in past 30 days?: No Contact w/someone who lives/traveled outside US past 30 days?: No Exposure to someone with infectious disease in past 14 days?: No Do you have a fever (greater than 100.4 F or 38 C)?: No Have you tested positive for COVID-19: No Exposed to someone with COVID-19 in past 14 days?: No Do you have a sore throat?: No Do you have a cough?: No Do you have any weakness?: No Are you experiencing any nausea/vomitting?: No Do you have any diarrhea?: No Are you experiencing any unusual bleeding?: No Do you have any muscle aches/pain?: No Do you have any abdominal pain?: No Are you experiencing loss of taste or smell?: No Other Medical History Have you received the Flu Vaccine for this season: Yes Have you received the Pneumonia Vaccine: Yes Review of Systems Constitutional Constitutional: Denies chills and Denies fever(s) ENT Ears, Nose, Mouth, and Throat: Denies dizziness *Cardiovascular Cardiovascular: Denies chest pain *Respiratory Respiratory: Denies cough *Gastrointestinal Gastrointestinal: Denies abdominal pain *Genitourinary Genitourinary: Reports urinary incontinence *Musculoskeletal Musculoskeletal: Denies arthralgias *Neurologic Neurologic: Reports as per HPI, Reports confusion and Denies dizziness Psychiatric Psychiatric: Reports confusion Meds Home Medications and Allergies Home Medications ?Medication ?Instructions ?Recorded ?Confirmed ?Type dorzolamide 22.3 mg-timolol 6.8 1 drp ophthalmic (eye) BID 11/06/21 04/21/24 History mg/mL eye drops metolazone 2.5 mg tablet 2.5 mg PO DAILY 11/06/21 04/21/24 History multivitamin (Daily Multi-Vitamin 1 tab PO DAILY 11/06/21 04/21/24 History tablet) mirabegron 25 mg tablet,extended 25 mg PO DAILY 09/25/23 04/21/24 History release 24 hr (Myrbetriq) New Prescriptions to Start Prescriptions: Allergies Allergy/AdvReac Type Severity Reaction Status Date / Time sulfamethoxazole (From Allergy Rash Verified 03/09/24 12:50 Bactrim) trimethoprim (From Bactrim) Allergy Rash Verified 03/09/24 12:50 Exam Data for Last 24 hours Vital signs and Labs for Last 24 Hours: Temp Pulse Resp BP Pulse Ox O2 Del Method 101.1 F H 102 H 18 142/74 H 95 Room Air 04/21/24 15:35 04/21/24 15:35 04/21/24 15:35 04/21/24 15:35 04/21/24 15:35 04/21/24 17:00 Laboratory Results - last 24 hr 04/21/24 12:08: WBC 9.4, RBC 4.02 L, Hgb 11.7 L, Hct 34.7 L, MCV 86.3, MCH 29.1, MCHC 33.7, RDW 14.4, Plt Count 219, MPV 10.1, Neut % (Auto) 86.7 H, Lymph % (Auto) 5.6 L, [place] % (Auto) 7.0, Eos % (Auto) 0.0 L, Baso % (Auto) 0.2, Neut # (Auto) 8.2 H, Lymph # (Auto) 0.5 L, [place] # (Auto) 0.7, Eos # (Auto) 0.0, Baso # (Auto) 0.0, Total Counted 100, Neutrophils % (Manual) 88 H, Lymphocytes % (Manual) 11, Monocytes % (Manual) 1 L, Platelet Estimate Normal, RBC Morphology Normal, PT 11.7, INR 1.05, APTT 37.6 H, Sodium 127 L, Potassium 2.1 L*, Chloride 87 L, Carbon Dioxide 31 H, Anion Gap 11.1, BUN 21 H, Creatinine 1.30 H, Estimated Creat Clear 27, Estimated GFR 39 L, Est GFR ( Amer) 47 L, Glucose 116 H, Lactate 2.7 H, Calcium 8.4, Magnesium 1.6, Total Bilirubin 2.2 H, AST 75 H, ALT 36, Alkaline Phosphatase 72, Troponin I 0.08 H, C-Reactive Protein 199.2 H, NT-Pro-B Natriuret Pep 4270 H, Total Protein 7.1, Albumin 3.8, Globulin 3.3 H, Albumin/Globulin Ratio 1.2, Triglycerides 116, Cholesterol 209 H, LDL Cholesterol Direct 128.63, VLDL Cholesterol 23, HDL Cholesterol 36 L, Cholesterol/HDL Ratio 5.8 H, Lipase 81, Procalcitonin 4.89 H, TSH 2.04, Thyroxine (T4) 8.2, Salicylates < 1.0 L 04/21/24 12:13: VBG pH 7.42 H, VBG pCO2 41.1, VBG pO2 35.8, VBG HCO3 25.8, VBG Total CO2 27.0, VBG O2 Saturation 68.0, VBG Base Excess 1.2, VBG Lactic Acid 2.9 H 04/21/24 12:15: SARS-CoV-2 (PCR) Not detected, Influenza A Untype (PCR) Not detected, Influenza Type B (PCR) Not detected 04/21/24 12:22: Urine Color [place], Urine Appearance Cloudy, Urine pH 6.0, Ur Specific [place] 1.020, Urine Protein 1+ A, Urine Glucose (UA) Negative, Urine Ketones Negative, Urine Blood 1+ A, Urine Nitrate Positive A, Urine Bilirubin Negative, Urine Urobilinogen 4.0, Ur Leukocyte Esterase 1+ A, Urine RBC 3-5, Urine WBC 10-20, Ur Squamous Epith Cells Occasional, Urine Bacteria 3+ 04/21/24 15:57: Troponin I 0.05 H 04/21/24 16:36: Lactate 1.5 I & O for Last 24 hours: Intake & Output 04/18/24 04/19/24 04/20/24 04/21/24 23:59 23:59 23:59 23:59 Weight 125 lb 7 oz Constitutional Constitutional: no acute distress Comments: alert, lying in bed *Routine HEENT Exam Head: Present normocephalic Eye: Present EOMI and PERRL ENT: Present mucous membranes moist *Routine Neck Exam Neck: Present supple; Absent lymphadenopathy *Routine Respiratory Exam Respiratory: Present CTA bilaterally *Routine Cardiovascular Exam Cardiovascular: Present RRR *Routine Abdominal Exam Abdominal: Present soft and normoactive bowel sounds; Absent tenderness *Routine Rectal Exam Rectal:: deferred *Routine Genitalia Exam Genitalia:: deferred *Routine Extremities Exam Extremities: Absent cyanosis, clubbing or edema *Routine Skin Exam Skin: Present warm; Absent rash Comments: dressing in place over right skin wound *Routine Neurological Exam Neurological: Present alert Comments: confused, cooperative, unable to answer historical questions Assessment and Plan *Assessment and plan (1) Severe sepsis: Status: Acute Category: Medical Code(s): A41.9 - Sepsis, unspecified organism; R65.20 - Severe sepsis without septic shock (2) Urinary tract infection: Status: Acute Category: Medical Code(s): N39.0 - Urinary tract infection, site not specified (3) Encephalopathy acute: Status: Acute Category: Medical Code(s): G93.40 - Encephalopathy, unspecified (4) Hyponatremia: Status: Acute Category: Medical Code(s): E87.1 - Hypo-osmolality and hyponatremia (5) Hypomagnesemia: Status: Acute Category: Medical Code(s): E83.42 - Hypomagnesemia (6) Hypokalemia: Status: Acute Category: Medical Code(s): E87.6 - Hypokalemia (7) Elevated lactic acid level: Status: Acute Category: Medical Code(s): R79.89 - Other specified abnormal findings of blood chemistry (8) Fever: Status: Acute Category: Medical Code(s): R50.9 - Fever, unspecified (9) Elevated bilirubin: Status: Acute Category: Medical Code(s): R17 - Unspecified jaundice Plan Patient admitted for further evaluation and management of her UTI with severe sepsis and electrolyte disturbances. Plan to continue Rocephin and monitor electrolytes. Spoke to patient's son and [id number] about treatment plan.
[2024-04-21 19:26] LABS: Troponin I 0.06 ng/ml (0.00-0.034)
[2024-04-21] MEDS: KCl 20mEq/100ml 100 ML 50 MEQ IV ×2 (21:48→23:08)
[2024-04-22] VITALS: BP 101/49; PULSE 70; PULSE 83; RESP 14; TEMP 36.6; O2SAT 97
[2024-04-22 04:00] VITALS: BP 134/66; PULSE 100; PULSE 105; RESP 16; TEMP 37.7; O2SAT 97; BMI 23.6
--- NOTE | 2024-04-22 04:05 | PC.NURSE ---
Lab reported preliminary results of blood cultures. aerobic PCR- ecoli / anaerobic gram- rods. reported to Dr. Tran (impregnator [employer] for [employer]). no new orders at this time.
[2024-04-22] MEDS: ACETAMINOPHEN 325MG TAB 650 MG PO (04:37)
[2024-04-22 06:06] LABS: POC Glucose,Bedside 85 (70-110)
[2024-04-22 07:08] LABS: HCV Ab Non Reactive (Non Reactive)
--- NOTE | 2024-04-22 07:41 | P.PN_ITS ---
Subjective *Date: 04/22/24 *Time: 07:41 Interval history: Patient with no new complaints today, slept well last night. Medical Exam Vital signs and Labs for Last 24 Hours: Vital Signs Temp Pulse Pulse Resp BP BP Pulse Ox 04/22/24 06:58 04/22/24 05:00 04/22/24 04:00 100 H 04/22/24 04:00 100 F H 105 H 16 134/66 97 04/22/24 03:00 04/22/24 01:00 04/22/24 00:00 70 04/22/24 00:00 97.9 F 83 14 101/49 L 97 04/21/24 23:00 04/21/24 21:00 04/21/24 20:00 04/21/24 20:00 110 H 04/21/24 20:00 98.4 F 110 H 16 103/39 L 94 L 04/21/24 18:49 04/21/24 18:43 04/21/24 17:00 04/21/24 15:35 101.1 F H 102 H 18 142/74 H 95 04/21/24 15:35 101.1 F H 90 16 142/74 H 04/21/24 14:01 92 H 22 144/78 H 98 04/21/24 13:34 82 20 123/59 L 96 04/21/24 13:18 85 22 116/55 L 97 04/21/24 12:22 92 H 19 128/59 L 96 04/21/24 11:20 97.9 F 68 19 142/67 H 99 O2 Del Method 04/22/24 06:58 Room Air 04/22/24 05:00 Room Air 04/22/24 04:00 04/22/24 04:00 Room Air 04/22/24 03:00 Room Air 04/22/24 01:00 Room Air 04/22/24 00:00 04/22/24 00:00 Room Air 04/21/24 23:00 Room Air 04/21/24 21:00 Room Air 04/21/24 20:00 Room Air 04/21/24 20:00 04/21/24 20:00 Room Air 04/21/24 18:49 Room Air 04/21/24 18:43 Room Air 04/21/24 17:00 Room Air 04/21/24 15:35 Room Air 04/21/24 15:35 04/21/24 14:01 04/21/24 13:34 04/21/24 13:18 04/21/24 12:22 Room Air 04/21/24 11:20 Room Air Intake and Output 04/21/24 04/21/24 04/22/24 15:59 23:59 07:59 Intake Total 270 / 390 120 / 120 Output Total 425 / 425 700 / 700 Balance -155 / -35 -580 / -580 Intake: Intake, Oral Amount 270 / 390 120 / 120 Output: Output, Urine Amount 425 / 425 700 / 700 Other: Number of Unmeasured Voids 0 0 Weight 125 lb 7 oz 125 lb 6.983 oz Patient Weight 04/22/24 23:59 Weight 125 lb 6.983 oz Laboratory Results - last 24 hr 04/21/24 12:08: WBC 9.4, RBC 4.02 L, Hgb 11.7 L, Hct 34.7 L, MCV 86.3, MCH 29.1, MCHC 33.7, RDW 14.4, Plt Count 219, MPV 10.1, Neut % (Auto) 86.7 H, Lymph % (Auto) 5.6 L, [place] % (Auto) 7.0, Eos % (Auto) 0.0 L, Baso % (Auto) 0.2, Neut # (Auto) 8.2 H, Lymph # (Auto) 0.5 L, [place] # (Auto) 0.7, Eos # (Auto) 0.0, Baso # (Auto) 0.0, Total Counted 100, Neutrophils % (Manual) 88 H, Lymphocytes % (Manual) 11, Monocytes % (Manual) 1 L, Platelet Estimate Normal, RBC Morphology Normal, PT 11.7, INR 1.05, APTT 37.6 H, Sodium 127 L, Potassium 2.1 L*, Chloride 87 L, Carbon Dioxide 31 H, Anion Gap 11.1, BUN 21 H, Creatinine 1.30 H, Estimated Creat Clear 27, Estimated GFR 39 L, Est GFR ( Amer) 47 L, Glucose 116 H, Lactate 2.7 H, Calcium 8.4, Magnesium 1.6, Total Bilirubin 2.2 H, AST 75 H, ALT 36, Alkaline Phosphatase 72, Troponin I 0.08 H, C-Reactive Protein 199.2 H, NT-Pro-B Natriuret Pep 4270 H, Total Protein 7.1, Albumin 3.8, Globulin 3.3 H, Albumin/Globulin Ratio 1.2, Triglycerides 116, Cholesterol 209 H, LDL Cholesterol Direct 128.63, VLDL Cholesterol 23, HDL Cholesterol 36 L, Cholesterol/HDL Ratio 5.8 H, Lipase 81, Procalcitonin 4.89 H, TSH 2.04, Thyroxine (T4) 8.2, Salicylates < 1.0 L, Hepatitis C Antibody Non reactive 04/21/24 12:13: VBG pH 7.42 H, VBG pCO2 41.1, VBG pO2 35.8, VBG HCO3 25.8, VBG Total CO2 27.0, VBG O2 Saturation 68.0, VBG Base Excess 1.2, VBG Lactic Acid 2.9 H 04/21/24 12:15: SARS-CoV-2 (PCR) Not detected, Influenza A Untype (PCR) Not detected, Influenza Type B (PCR) Not detected 04/21/24 12:22: Urine Color [place], Urine Appearance Cloudy, Urine pH 6.0, Ur Specific [place] 1.020, Urine Protein 1+ A, Urine Glucose (UA) Negative, Urine Ketones Negative, Urine Blood 1+ A, Urine Nitrate Positive A, Urine Bilirubin Negative, Urine Urobilinogen 4.0, Ur Leukocyte Esterase 1+ A, Urine RBC 3-5, Urine WBC 10-20, Ur Squamous Epith Cells Occasional, Urine Bacteria 3+ 04/21/24 15:57: Troponin I 0.05 H 04/21/24 16:36: Lactate 1.5 04/21/24 18:25: Troponin I 0.06 H 04/22/24 04:31: POC Glucose 85 I & O for Labs for Last 24 Hours: Intake & Output 04/19/24 04/20/24 04/21/24 04/22/24 23:59 23:59 23:59 23:59 Intake Total 270 / 390 120 / 120 Output Total 425 / 425 700 / 700 Balance -155 / -35 -580 / -580 Weight 125 lb 7 oz 125 lb 6.983 oz Microbiology Reports for the Last 24 Hours: Microbiology 04/21/24 12:43 Blood Blood Culture - Preliminary Constitutional: Present no acute distress Respiratory: Present normal respiratory effort Cardiac: Present Reg Rate and Rhythm GI: Present normal bowel sounds; Absent tenderness Extremities: Present normal inspection and full ROM Assessment and Plan *Assessment and plan (1) Severe sepsis: Status: Acute Category: Medical Code(s): A41.9 - Sepsis, unspecified organism; R65.20 - Severe sepsis without septic shock (2) Urinary tract infection: Status: Acute Category: Medical Code(s): N39.0 - Urinary tract infection, site not specified (3) Encephalopathy acute: Status: Acute Category: Medical Code(s): G93.40 - Encephalopathy, unspecified (4) Hyponatremia: Status: Acute Category: Medical Code(s): E87.1 - Hypo-osmolality and hyponatremia (5) Hypomagnesemia: Status: Acute Category: Medical Code(s): E83.42 - Hypomagnesemia (6) Hypokalemia: Status: Acute Category: Medical Code(s): E87.6 - Hypokalemia (7) Elevated lactic acid level: Status: Acute Category: Medical Code(s): R79.89 - Other specified abnormal findings of blood chemistry (8) Fever: Status: Acute Category: Medical Code(s): R50.9 - Fever, unspecified (9) Elevated bilirubin: Status: Acute Category: Medical Code(s): R17 - Unspecified jaundice Plan AM labs pending, continue current care, await results.
[2024-04-22 08:00] VITALS: BP 106/50; PULSE 90; PULSE 92; RESP 18; TEMP 36.8; O2SAT 96
[2024-04-22 08:53] LABS: Basophils % 0.2 % (0.1-2.0); Lymphocytes # 0.3 K/mm3 (0.7-4.5)
[2024-04-22 09:09] LABS: Eosinophils % 0.2 % (0.1-12.0); Hematocrit 28.3 % (37.0-47.0); Lymphocytes % 4.8 % (10-50); Mean Corpuscular Hemoglobin 29.7 pg (27.0-31.2); Mean Platelet Volume 10.4 fl (7.4-10.4); Monocytes # 0.4 K/mm3 (0.1-1.0); Neutrophils # 5.5 K/mm3 (1.8-7.8); Neutrophils % 87.3 % (37.0-80.0); Platelet Count 177 K/mm3 (142-424); Red Blood Count 3.33 M/mm3 (4.20-5.40); Red Cell Distribution Width 14.5 % (11.5-17.5); White Blood Count 6.3 K/mm3 (4.8-10.8)
[2024-04-22 09:11] LABS: Hemoglobin 9.9 g/dL (12.2-16.2); MANUAL DIFFERENTIAL MANUAL DIFFERENTIAL (MANUAL DIFF)
[2024-04-22 09:12] LABS: Albumin Level 2.6 g/dl (3.5-5.0); Chloride 93 mmol/L (98-107); Sodium 126 mmol/L (136-145)
[2024-04-22 09:15] LABS: Alanine Aminotransferase 26 U/L (12-78); Alkaline Phosphatase 65 U/L (38-126); Anion Gap 7.2 mEq/L (5-15); Aspartate Amino Transferase 88 U/L (14-36); Blood Urea Nitrogen 19 mg/dl (7-17); Carbon Dioxide 28 mmol/L (22.0-30.0); Creatinine Clearance Estimated 39 mL/min (50-200); Estimated Glomerular Filt Rate 69 ml/min (>60); GFR (African American) 83 ML/MIN (>60); Globulin 2.7 g/dL (1.3-3.2); Total Protein,Serum 5.3 g/dl (6.3-8.2)
[2024-04-22 09:16] LABS: Calcium 7.4 mg/dl (8.4-10.2); Glucose 80 mg/dl (74-100)
[2024-04-22 09:17] LABS: Potassium 2.2 mmoL/L (3.5-5.1)
[2024-04-22 09:23] LABS: Magnesium 2.2 mg/dl (1.6-2.3)
[2024-04-22 09:50] LABS: Lymphocytes % 6 % (10-50); Monocytes % 3 % (2-9); Neutrophils % 91 % (42-76); Platelet Estimate Normal; RBC Morphology Normal; Total Cells Counted 100
[2024-04-22] MEDS: DORZOLAMIDE OP ×2 (09:50→21:30)
[2024-04-22] MEDS: TIMOLOL OP ×2 (09:50→21:30)
[2024-04-22 12:00] VITALS: BP 113/57; PULSE 80; PULSE 89; RESP 18; TEMP 36.8; O2SAT 96
[2024-04-22] MEDS: POTASSIUM CHLORIDE 20MEQ TAB 40 MEQ PO (14:40)
[2024-04-22] MEDS: CEFTRIAXONE SODIUM 2 GM in 0.9 % SODIUM CHLORIDE 100 ML IV (14:41)
[2024-04-22] MEDS: KCl 20mEq/100ml 100 ML 50 MEQ IV ×2 (15:23→17:54)
[2024-04-22 16:00] VITALS: BP 123/58; PULSE 105; PULSE 90; RESP 18; TEMP 36.9; O2SAT 96
--- NOTE | 2024-04-22 18:35 | PC.NURSE ---
ALERT AND PLEASANTLY CONFUSED. TOLERATING ROOM AIR. ABLE TO ANSWER QUESTIONS AND MAKE NEEDS KNOWN TO STAFF.
[2024-04-22 20:00] VITALS: BP 129/71; PULSE 100; PULSE 104; RESP 16; TEMP 37.2; O2SAT 97
[2024-04-23] VITALS (7 sets, daily range): BP systolic 110–146; BP diastolic 49–73; PULSE 79–110; RESP 14–20; TEMP 36.4–36.9; O2SAT 95–99; BMI 24.0
--- NOTE | 2024-04-23 06:37 | PC.NURSE ---
Pt has had a bit of confusion this shift. Pt removed both IVs at approx 0300, new 22g IV placed in left forearm Pt removed IV @ approx 0600, new 22g IV placed to Right forearm
[2024-04-23 08:32] LABS: MANUAL DIFFERENTIAL MANUAL DIFFERENTIAL (MANUAL DIFF)
[2024-04-23 08:33] LABS: Basophils % 0.5 % (0.1-2.0); Hematocrit 31.4 % (37.0-47.0); Hemoglobin 10.7 g/dL (12.2-16.2); Lymphocytes # 0.7 K/mm3 (0.7-4.5); Lymphocytes % 16.1 % (10-50); Mean Corpuscular HGB Conc 34.1 g/dL (31.8-35.4); Mean Corpuscular Hemoglobin 29.2 pg (27.0-31.2); Mean Corpuscular Volume 85.8 fl (81-99); Mean Platelet Volume 9.9 fl (7.4-10.4); Monocytes # 0.5 K/mm3 (0.1-1.0); Monocytes % 13.2 % (1.7-9.3); Neutrophils # 2.8 K/mm3 (1.8-7.8); Neutrophils % 68.7 % (37.0-80.0); Platelet Count 192 K/mm3 (142-424); Red Blood Count 3.66 M/mm3 (4.20-5.40); Red Cell Distribution Width 14.6 % (11.5-17.5); White Blood Count 4.1 K/mm3 (4.8-10.8)
[2024-04-23 08:42] LABS: Chloride 94 mmol/L (98-107); Sodium 126 mmol/L (136-145)
[2024-04-23 08:45] LABS: Blood Urea Nitrogen 12 mg/dl (7-17); Creatinine Clearance Estimated 40 mL/min (50-200); Estimated Glomerular Filt Rate 80 ml/min (>60); GFR (African American) 97 ML/MIN (>60)
[2024-04-23 08:46] LABS: Anion Gap 7.8 mEq/L (5-15); Calcium 7.9 mg/dl (8.4-10.2); Carbon Dioxide 27 mmol/L (22.0-30.0); Glucose 80 mg/dl (74-100)
[2024-04-23 08:49] LABS: Potassium 2.8 mmoL/L (3.5-5.1)
[2024-04-23 09:08] LABS: Lymphocytes % 12 % (10-50); Monocytes % 7 % (2-9); Neutrophils % 81 % (42-76); Platelet Estimate Normal; RBC Morphology Normal; Total Cells Counted 100
[2024-04-23] MEDS: DORZOLAMIDE OP ×2 (10:05→20:42)
[2024-04-23] MEDS: TIMOLOL OP ×2 (10:05→20:42)
[2024-04-23] MEDS: POTASSIUM CHLORIDE 20MEQ TAB 40 MEQ PO ×3 (10:06→20:42)
--- NOTE | 2024-04-23 10:23 | EXP.ACUTE.PN ---
Subjective *Date: 04/23/24 *Time: 10:23 Interval history: Patient with no new complaints today. Medical Exam Vital signs and Labs for Last 24 Hours: Vital Signs Temp Pulse Pulse Resp BP Pulse Ox O2 Del Method 04/23/24 08:00 98.0 F 88 18 140/69 95 Room Air 04/23/24 06:44 Room Air 04/23/24 05:00 Room Air 04/23/24 04:00 90 04/23/24 03:36 98.0 F 86 18 130/65 97 Room Air 04/23/24 03:00 Room Air 04/23/24 01:00 Room Air 04/23/24 00:00 90 04/23/24 00:00 98.4 F 79 14 110/49 L 95 Room Air 04/22/24 23:00 Room Air 04/22/24 21:00 Room Air 04/22/24 20:00 100 H 04/22/24 20:00 Room Air 04/22/24 20:00 99.0 F 104 H 16 129/71 97 Room Air 04/22/24 18:36 Room Air 04/22/24 17:00 Room Air 04/22/24 16:00 98.4 F 105 H 18 123/58 L 96 Room Air 04/22/24 16:00 90 04/22/24 15:00 Room Air 04/22/24 13:00 Room Air 04/22/24 12:00 98.3 F 89 18 113/57 L 96 Room Air 04/22/24 12:00 80 04/22/24 11:00 Room Air Intake and Output 04/22/24 04/23/24 04/23/24 23:59 07:59 15:59 Intake Total 240 / 240 Output Total 900 / 1600 0 / 0 Balance -900 / -1180 240 / 240 Intake: Intake, Oral Amount 240 / 240 Output: Output, Urine Amount 900 / 1600 0 / 0 Other: Number of Unmeasured Voids 0 1 Weight 127 lb 8 oz Patient Weight 04/23/24 23:59 Weight 127 lb 8 oz Laboratory Results - last 24 hr 04/23/24 08:28: WBC 4.1 L D, RBC 3.66 L, Hgb 10.7 L, Hct 31.4 L, MCV 85.8, MCH 29.2, MCHC 34.1, RDW 14.6, Plt Count 192, MPV 9.9, Neut % (Auto) 68.7, Lymph % (Auto) 16.1, [place] % (Auto) 13.2 H, Eos % (Auto) 1.0, Baso % (Auto) 0.5, Neut # (Auto) 2.8, Lymph # (Auto) 0.7, [place] # (Auto) 0.5, Eos # (Auto) 0.0, Baso # (Auto) 0.0, Total Counted 100, Neutrophils % (Manual) 81 H, Lymphocytes % (Manual) 12, Monocytes % (Manual) 7, Platelet Estimate Normal, RBC Morphology Normal, Sodium 126 L, Potassium 2.8 L* D, Chloride 94 L, Carbon Dioxide 27, Anion Gap 7.8, BUN 12 D, Creatinine 0.70, Estimated Creat Clear 40, Estimated GFR 80, Est GFR ( Amer) 97, Glucose 80, Calcium 7.9 L I & O for Labs for Last 24 Hours: Intake & Output 04/20/24 04/21/24 04/22/24 04/23/24 23:59 23:59 23:59 23:59 Intake Total 270 / 390 180 / 420 240 / 240 Output Total 425 / 425 1600 / 1600 0 / 0 Balance -155 / -35 -1420 / -1180 240 / 240 Weight 125 lb 7 oz 125 lb 6.983 oz 127 lb 8 oz Microbiology Reports for the Last 24 Hours: Microbiology 04/21/24 12:12 Blood Blood Culture - Preliminary Gram Negative Rods 04/21/24 12:43 Blood Blood Culture - Preliminary Gram Negative Rods Gram Negative Rods#2 04/21/24 12:22 Urine,Clean Catch Urine Culture - Final Escherichia coli Constitutional: Present no acute distress Respiratory: Present normal respiratory effort Cardiac: Present Reg Rate and Rhythm GI: Present normal bowel sounds; Absent tenderness Extremities: Present normal inspection and full ROM Assessment and Plan *Assessment and plan (1) Severe sepsis: Status: Acute Category: Medical Code(s): A41.9 - Sepsis, unspecified organism; R65.20 - Severe sepsis without septic shock (2) Urinary tract infection: Status: Acute Category: Medical Code(s): N39.0 - Urinary tract infection, site not specified (3) Encephalopathy acute: Status: Acute Category: Medical Code(s): G93.40 - Encephalopathy, unspecified (4) Hyponatremia: Status: Acute Category: Medical Code(s): E87.1 - Hypo-osmolality and hyponatremia (5) Hypomagnesemia: Status: Acute Category: Medical Code(s): E83.42 - Hypomagnesemia (6) Hypokalemia: Status: Acute Category: Medical Code(s): E87.6 - Hypokalemia (7) Elevated lactic acid level: Status: Acute Category: Medical Code(s): R79.89 - Other specified abnormal findings of blood chemistry (8) Fever: Status: Acute Category: Medical Code(s): R50.9 - Fever, unspecified (9) Elevated bilirubin: Status: Acute Category: Medical Code(s): R17 - Unspecified jaundice Plan Patient has improved, potassium is till low, will give addition IV potassium today and recheck labs tomorrow.
[2024-04-23] MEDS: KCl 20mEq/100ml 100 ML 50 MEQ IV ×2 (11:29→12:29)
[2024-04-23] MEDS: CEFTRIAXONE SODIUM 2 GM in 0.9 % SODIUM CHLORIDE 100 ML IV (13:16)
--- NOTE | 2024-04-23 17:30 | PC.NURSE ---
PT ANSWERS ORIENTATION QUESTIONS APPROPRIATELY BUT IS PREDOMINATELY PLEASANTLY CONFUSED. SAT UP TO CHAIR FOR MOST OF SHIFT WITH BED ALARM AND TOLERATED WELL. SHE HAS PULLED OUT MULTIPLE IVS THIS SHIFT. TOLERATING PO POTASSIUM CRUSHED IN APPLESAUCE. 2 ADDITIONAL RUNS OF IV POTASSIUM COMPLETED THIS SHIFT.
--- NOTE | 2024-04-23 22:24 | PC.NURSE ---
Pt currently has no IV access due to refusal and confusion. Pt continues to pull IVs out and remove heart monitor despite numerous attempts to reorient and educate. Charge nurse and MD aware
--- NOTE | 2024-04-24 00:15 | PC.NURSE ---
Report given to Tashia Miller at this time
[2024-04-24 04:00] VITALS: BP 143/63; PULSE 98; RESP 16; TEMP 37.2; O2SAT 96; BMI 23.7
--- NOTE | 2024-04-24 06:10 | PC.NURSE ---
Pt. alert to name. Pt. was in the chair part of the night with a pull alarm, she than woke up and got in the bed to sleep. Bed alarm on. Pt. confused.able to ambulate with her rollator walker and assist x 1 to and from bathroom. attempted to reorientate several times. Pt. has no IV;s or court monitor. VSS, Personal items and call fuentes in reach.
[2024-04-24 07:48] LABS: Chloride 98 mmol/L (98-107); Potassium 3.5 mmoL/L (3.5-5.1); Sodium 132 mmol/L (136-145)
[2024-04-24 07:51] LABS: Anion Gap 10.5 mEq/L (5-15); Blood Urea Nitrogen 12 mg/dl (7-17); Calcium 8.1 mg/dl (8.4-10.2); Carbon Dioxide 27 mmol/L (22.0-30.0); Creatinine Clearance Estimated 39 mL/min (50-200); Estimated Glomerular Filt Rate 80 ml/min (>60); GFR (African American) 97 ML/MIN (>60); Glucose 102 mg/dl (74-100)
[2024-04-24 07:58] LABS: Basophils % 0.8 % (0.1-2.0); Eosinophils # 0.1 K/mm3 (0.0-0.4); Eosinophils % 3.6 % (0.1-12.0); Hematocrit 29.6 % (37.0-47.0); Hemoglobin 10.1 g/dL (12.2-16.2); Lymphocytes # 0.8 K/mm3 (0.7-4.5); Lymphocytes % 21.7 % (10-50); Mean Corpuscular HGB Conc 34.1 g/dL (31.8-35.4); Mean Corpuscular Hemoglobin 29.3 pg (27.0-31.2); Mean Corpuscular Volume 85.8 fl (81-99); Mean Platelet Volume 10.4 fl (7.4-10.4); Monocytes # 0.5 K/mm3 (0.1-1.0); Monocytes % 13.1 % (1.7-9.3); Neutrophils # 2.2 K/mm3 (1.8-7.8); Neutrophils % 60.2 % (37.0-80.0); Platelet Count 209 K/mm3 (142-424); Red Blood Count 3.45 M/mm3 (4.20-5.40); Red Cell Distribution Width 14.7 % (11.5-17.5); White Blood Count 3.6 K/mm3 (4.8-10.8)
[2024-04-24 08:00] VITALS: BP 133/66; PULSE 102; RESP 18; TEMP 36.6; O2SAT 97
[2024-04-24] MEDS: DORZOLAMIDE OP (08:17)
[2024-04-24] MEDS: POTASSIUM CHLORIDE 20MEQ TAB 40 MEQ PO (08:17)
[2024-04-24] MEDS: TIMOLOL OP (08:17)
--- NOTE | 2024-04-24 08:40 | EXP.ACUTE.PN ---
Subjective *Date: 04/24/24 *Time: 08:40 Interval history: Patient feels a little better this morning. No fever overnight. Medical Exam Vital signs and Labs for Last 24 Hours: Vital Signs Temp Pulse Pulse Resp BP Pulse Ox O2 Del Method 04/24/24 07:00 Room Air 04/24/24 05:00 Room Air 04/24/24 04:00 98.9 F 98 H 16 143/63 H 96 Room Air 04/24/24 03:00 Room Air 04/24/24 01:00 Room Air 04/23/24 23:00 Room Air 04/23/24 21:00 Room Air 04/23/24 20:00 110 H 04/23/24 20:00 Room Air 04/23/24 20:00 97.6 F 108 H 16 145/61 H 99 Room Air 04/23/24 18:00 Room Air 04/23/24 17:00 Room Air 04/23/24 16:00 97.9 F 80 18 146/73 H 99 Room Air 04/23/24 14:47 Room Air 04/23/24 13:00 Room Air 04/23/24 12:00 100 H 04/23/24 12:00 97.8 F 103 H 20 144/69 H 95 Room Air 04/23/24 11:00 Room Air 04/23/24 09:00 Room Air Intake and Output 04/23/24 04/24/24 04/24/24 23:59 07:59 15:59 Intake Total 400 / 1280 240 / 240 Output Total 0 / 0 0 / 0 Balance 400 / 1280 240 / 240 Intake: Intake, Oral Amount 400 / 1280 240 / 240 Output: Output, Urine Amount 0 / 0 0 / 0 Other: Number of Unmeasured Voids 1 1 Number of Bowel Movements 1 1 Weight 125 lb 11.2 oz Patient Weight 04/24/24 23:59 Weight 125 lb 11.2 oz Laboratory Results - last 24 hr 04/23/24 08:28: Total Counted 100, Neutrophils % (Manual) 81 H, Lymphocytes % (Manual) 12, Monocytes % (Manual) 7, Platelet Estimate Normal, RBC Morphology Normal, Sodium 126 L, Potassium 2.8 L* D, Chloride 94 L, Carbon Dioxide 27, Anion Gap 7.8, BUN 12 D, Creatinine 0.70, Estimated Creat Clear 40, Estimated GFR 80, Est GFR ( Amer) 97, Glucose 80, Calcium 7.9 L 04/24/24 06:34: WBC 3.6 L, RBC 3.45 L, Hgb 10.1 L, Hct 29.6 L, MCV 85.8, MCH 29.3, MCHC 34.1, RDW 14.7, Plt Count 209, MPV 10.4, Neut % (Auto) 60.2, Lymph % (Auto) 21.7, [place] % (Auto) 13.1 H, Eos % (Auto) 3.6, Baso % (Auto) 0.8, Neut # (Auto) 2.2, Lymph # (Auto) 0.8, [place] # (Auto) 0.5, Eos # (Auto) 0.1, Baso # (Auto) 0.0, Sodium 132 L, Potassium 3.5 D, Chloride 98, Carbon Dioxide 27, Anion Gap 10.5, BUN 12, Creatinine 0.70, Estimated Creat Clear 39, Estimated GFR 80, Est GFR ( Amer) 97, Glucose 102 H D, Calcium 8.1 L I & O for Labs for Last 24 Hours: Intake & Output 04/21/24 04/22/24 04/23/24 04/24/24 23:59 23:59 23:59 23:59 Intake Total 270 / 390 180 / 420 1040 / 1280 240 / 240 Output Total 425 / 425 1600 / 1600 0 / 0 0 / 0 Balance -155 / -35 -1420 / -1180 1040 / 1280 240 / 240 Weight 125 lb 7 oz 125 lb 6.983 oz 127 lb 8 oz 125 lb 11.2 oz Microbiology Reports for the Last 24 Hours: Microbiology 04/21/24 12:43 Blood Blood Culture - Final Escherichia coli#2 Escherichia coli 04/21/24 12:12 Blood Blood Culture - Final Escherichia coli 04/21/24 12:22 Urine,Clean Catch Urine Culture - Final Escherichia coli Constitutional: Present no acute distress Respiratory: Present normal respiratory effort Cardiac: Present Reg Rate and Rhythm GI: Present normal bowel sounds; Absent tenderness Extremities: Present normal inspection and full ROM Assessment and Plan *Assessment and plan (1) Severe sepsis: Status: Acute Category: Medical Code(s): A41.9 - Sepsis, unspecified organism; R65.20 - Severe sepsis without septic shock (2) Urinary tract infection: Status: Acute Category: Medical Code(s): N39.0 - Urinary tract infection, site not specified (3) Encephalopathy acute: Status: Acute Category: Medical Code(s): G93.40 - Encephalopathy, unspecified (4) Hyponatremia: Status: Acute Category: Medical Code(s): E87.1 - Hypo-osmolality and hyponatremia (5) Hypomagnesemia: Status: Acute Category: Medical Code(s): E83.42 - Hypomagnesemia (6) Hypokalemia: Status: Acute Category: Medical Code(s): E87.6 - Hypokalemia (7) Elevated lactic acid level: Status: Acute Category: Medical Code(s): R79.89 - Other specified abnormal findings of blood chemistry (8) Fever: Status: Acute Category: Medical Code(s): R50.9 - Fever, unspecified (9) Elevated bilirubin: Status: Acute Category: Medical Code(s): R17 - Unspecified jaundice Plan Patient has improved, potassium is normal now, will change to oral antibiotics today and request PT/OT evaluation.
--- NOTE | 2024-04-24 08:54 | SW/DCPLANNER ---
I spoke w/ patient and daughter in law (Ronda) regarding plans once medically stable for discharge. PT/OT evaluated patient and recommended home w/ home health health services. Per Ronda they are not interested in home health services at this time. Patient currently resides w/ son and daughter in law and are home w/ her 16/11. I will continue to follow up w/ patient and family to assist w/ any needs or new orders. Per patient will discharge home this afternoon.
--- NOTE | 2024-04-24 09:27 | HMH.PTEV ---
Physical Therapy Evaluation Rehab PT IP Evaluation Start: 04/24/24 08:44 Freq: ONCE Status: Active Protocol: Document 04/24/24 09:22 DANIELLA (Rec: 04/24/24 09:27 DANIELLA [id number]) Subjective/History History History Per H&P: Ms. Villegas is an 83 year old female patient of [facility], who typically sees Dr. Hall for her primary medical care. She brought to the ER today with a 3 day history of worsening confusion, generalized weakness and urinary incontinence. She has a history of memory loss, but does not have a formal diagnosis of dementia. She takes Metolazone daily due to high blood pressure and lower extremity edema. 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 Family and ER record provides history as patient is confused Subjective Subjective Pt lives with family and is usually IND with mobility using a rollator. Pt's family member reports she has been having some difficulties with ambulation recently while at [facility] but is now at her baseline with mobility. Daughter is home and is able to assist as needed. New diagnosis of cancer in past 12 No months? Rehab PT IP Eval Objective Appearance Patient Behavior Appropriate,Cooperative Patient Orientation Person,Place Difficulty following instructions none Speech Pattern Clear Ambulation Patient Able to Ambulate Yes Ambulation Observation IP General Gait Pattern Observation No Deviations/Normal Ambulation Distance (feet) 150 Ambulation Assistive Device Rolling Walker Ambulation Ability Supervision/Stand by,Contact Guard/Hand Hold Balance Ability to Arise Able, uses arms to help Sitting Balance Steady, safe Standing Balance Steady, wide stance Dynamic Sitting Balance Ability Good Dynamic Standing Balance Ability Good Transfers Bed Transfer Ability Supervision/Stand by Sit to Stand Bed Transfer Ability Supervision/Stand by Rehab PT IP prob,goals,plan Problems Date of Evaluation: 04/24/24 Rehab Potential Rehab Potential Innapropriate for Skilled Therapy Discharge Plan PT Discharge Plan Pt's mobility is at baseline. Pt safe to d/c home with care by family as needed. Eval Complexity Eval Charge Codes 85434 - Moderate Complexity PHYSICIAN CERTIFICATION: I certify the specified therapy services for Kirsten Villegas are required, authorized, and reviewed every 30 days.
[2024-04-24] MEDS: CEFDINIR 300MG CAPSULE 300 MG PO (09:29)
--- NOTE | 2024-04-24 09:33 | HMH.OTEV ---
OT Inpatient Evaluation Rehab OT IP Evaluation Start: 04/24/24 08:44 Freq: ONCE Status: Active Protocol: Document 04/24/24 09:30 ARNOLD (Rec: 04/24/24 09:33 [facility] [id number]) Rehab OT IP Assessment Subjective History Pt oriented x 3 on arrival. Pt's daughter in law present and supportive during therapy evaluation. Pt admitted on due to confusion and UTI. History and physical: Ms. Villegas is an 83 year old female patient of [facility], who typically sees Dr. Hall for her primary medical care. She brought to the ER today with a 3 day history of worsening confusion, generalized weakness and urinary incontinence. She has a history of memory loss, but does not have a formal diagnosis of dementia. She takes Metolazone daily due to high blood pressure and lower extremity edema. 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 Family and ER record provides history as patient is confused Subjective I do feel better. Prior to being in the hospital , pt lived with her son and Daughter in law. Pt claims normally she is independent with dressing and feeding. Family does assist with bathing due to safety. She is dependent upon family for completion of IADLs. Pt uses a rolling walker during functional transfers. Pt no longer drives. Objective Patient Orientation Person,Place,Birthday Right Upper Extremity Gross ROM WFL Left Upper Extremity Gross ROM WFL Transfer Training Sit/Stand Transfer Assist Level Supervision/Stand by Chair Transfer Ability Supervision/Stand by Chair Transfer Technique Sit to/from Ambulatory Chair Transfer Assistive Devices Rolling Walker Lower Body Dressing Ability Standby Assistance Performing Toilet Hygiene Ability Standby Assistance Overall Commode/Toilet Transfer Ability Standby Assistance Commode/Toilet Transfer Technique Sit to/from Ambulatory Rehab OT IP prob,goals,plan Problems Date of Evaluation: 04/24/24 Rehab Potential Rehab Potential Innapropriate for Skilled Therapy Discharge Plan OT Discharge Plan Pt appears to be at her baseline with functional transfers and ADL independence . Pt can return home with family assistance once she is medically stable per physician . Eval Complexity Eval Charge Codes 08401 - Low Complexity PHYSICIAN CERTIFICATION: I certify the specified therapy services for Kirsten Villegas are required, authorized, and reviewed every 30 days.
[2024-04-24 12:00] VITALS: BP 160/74; PULSE 89; RESP 18; TEMP 36.4; O2SAT 100
--- NOTE | 2024-04-24 15:28 | HMH.PHAINT1 ---
Pharmacy Intervention Comments: Counselled patient on new medications as well as discontinued medications. Patient verbalized understanding.
--- NOTE | 2024-04-25 12:07 | SW/DCPLANNER ---
Spoke with patients bryan marshall. Patients daughter joanna stated that her mother joanna is doing well. Patients daughter in law stated that her mother in law seemed to be a little more confused today than yesterday. Patients daughter joanna stated that they are aware of her upcoming appointment and was able to cloth picker her new medicine. Patients daughter in law stated that they have no concerns or questions at this time. Rahel JACKSON Head Up Operator
--- NOTE | 2024-05-02 09:15 | P.DS_ITS ---
General Admission date:: 04/21/24 Discharge date: 04/24/24 HPI HPI HPI: Ms. Villegas is an 83 year old female patient of [facility], who typically sees Dr. Hall for her primary medical care. She brought to the ER today with a 3 day history of worsening confusion, generalized weakness and urinary incontinence. She has a history of memory loss, but does not have a formal diagnosis of dementia. She takes Metolazone daily due to high blood pressure and lower extremity edema. 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 Family and ER record provides history as patient is confused Hospital Course Hospital Course Hospital Course: Patient was admitted from the emergency room for further evaluation and management of her UTI with sepsis and electrolyte disturbances. She was continued on Rocephin. And received additional IV potassium. On 04/24/2024 potassium was normal at 3.5. Kidney function was normal. Blood cultures were positive for E. coli As well as urine culture Sensitive to the Rocephin. Patient had been able to sit up in a chair. She was alert to her name at this point. She was able to ambulate with a rollator walker with some assistance. 04/24 patient was discharged to home. She was to continue with antibiotic of cefdinir for 5 additional days. P.o. potassium was also added. She was to follow-up with Dr. Hall in the office of [facility].Other meds as per medicine sheet. Exam Data for Last 24 hours Vital signs and Labs for Last 24 Hours: Temp Pulse Resp BP Pulse Ox O2 Del Method 97.6 F 89 18 160/74 H 100 Room Air 04/24/24 12:04/24/24 12:04/24/24 12:04/24/24 12:04/24/24 12:04/24/24 15:00 Narrative: Constitutional: Present no acute distress Respiratory: Present normal respiratory effort Cardiac: Present Reg Rate and Rhythm GI: Present normal bowel sounds; Absent tenderness Extremities: Present normal inspection and full ROM Results Data Completed and Pending Completed studies during hospitalization [Text1]: 04/21 2024 CXR FINDINGS: The heart size is normal. The mediastinum is normal. There is no focal infiltrate or edema. There are no pleural effusions. There is no pneumothorax. There is thoracic scoliosis convex to the left measuring 25 degrees. IMPRESSION: No acute cardiopulmonary process DS: Diagnosis Discharge Diagnosis (1) Severe sepsis: Status: Acute Code(s): A41.9 - Sepsis, unspecified organism; R65.20 - Severe sepsis without septic shock (2) Urinary tract infection: Status: Acute Code(s): N39.0 - Urinary tract infection, site not specified (3) Encephalopathy acute: Status: Acute Code(s): G93.40 - Encephalopathy, unspecified (4) Hyponatremia: Status: Acute Code(s): E87.1 - Hypo-osmolality and hyponatremia (5) Hypomagnesemia: Status: Acute Code(s): E83.42 - Hypomagnesemia (6) Hypokalemia: Status: Acute Code(s): E87.6 - Hypokalemia (7) Elevated lactic acid level: Status: Acute Code(s): R79.89 - Other specified abnormal findings of blood chemistry (8) Fever: Status: Acute Code(s): R50.9 - Fever, unspecified (9) Elevated bilirubin: Status: Acute Code(s): R17 - Unspecified jaundice Meds Home Medications and Allergies Home Medications ?Medication ?Instructions ?Recorded ?Confirmed ?Type dorzolamide 22.3 mg-timolol 6.8 1 drp ophthalmic (eye) BID 11/06/21 04/21/24 History mg/mL eye drops multivitamin (Daily Multi-Vitamin 1 tab PO DAILY 11/06/21 04/21/24 History tablet) mirabegron 25 mg tablet,extended 25 mg PO DAILY 09/25/23 04/21/24 History release 24 hr (Myrbetriq) cefdinir 300 mg capsule 300 mg PO Q12H #10 caps 04/24/24 Rx potassium chloride 10 mEq 10 meq PO DAILY #30 caps 04/24/24 Rx capsule,extended release magnesium oxide 400 mg PO HS #30 tabs 04/25/24 Rx New Prescriptions to Start Prescriptions: cefdinir Closter,Earnest potassium chloride Closter,Earnest Allergies Allergy/AdvReac Type Severity Reaction Status Date / Time sulfamethoxazole (From Allergy Rash Verified 03/09/24 12:50 Bactrim) trimethoprim (From Bactrim) Allergy Rash Verified 03/09/24 12:50 Discharge Plan Disposition Patient Disposition: Home, Self-Care Condition: Fair Discharge Order Discharge Orders: Discharge Order (Routine); Ordered 04/24/24 Ordered By: Earnest Mosley Follow up Plan Follow up with: Cruz Hall MD [Primary Care Provider] - 05/09/24 10:15 am Prescriptions/Medication Reconciliation: New cefdinir 300 mg capsule 300 mg PO Q12H Qty: 10 0RF potassium chloride 10 mEq capsule, extended release 10 meq PO DAILY Qty: 30 0RF Continued multivitamin [Daily Multi-Vitamin] Tablet 1 tab PO DAILY dorzolamide-timolol 22.3-6.8 mg/mL drops 1 drp OP BID mirabegron [Myrbetriq] 25 mg tablet extended release 24 hr 25 mg PO DAILY Patient Comments: TAKE 1 TABLET BY MOUTH ONCE DAILY Discontinued metolazone 2.5 mg tablet 2.5 mg PO DAILY No Action magnesium oxide 400 mg magnesium tablet 400 mg PO HS Qty: 30 2RF Problem Reconciliation Problems Reviewed?: Yes Patient Discharge Instructions ACTIVITY: Continue current activity DIET: continue same diet Patient Instructions: Urinary Tract Infection, Acute Kidney Injury, DI for Altered Mental Status, DI for Acute Kidney Injury Print Language: Divehi Providers Primary Care Provider: Cruz Hall Admit Provider: Earnest Mosley Attending Provider: Earnest Mosley
== END 2024-04-24 16:17 | disposition home or self-care (01) | DRG 872 ==
LOC: UTC 11:16 → ER 11:17 → 2ND 14:54
PROVIDERS: Admitting Provider Family Medicine; Emergency Provider Emergency Medicine; PCP Family Medicine; Visit Provider Family Medicine
DX: A41.9 Sepsis, unspecified organism (principal); N39.0 Urinary tract infection, site not specified; E87.1 Hypo-osmolality and hyponatremia; L97.919 Non-pressure chronic ulcer of unspecified part of right lower leg with unspecified severity; B96.20 Unspecified Escherichia coli [E. coli] as the cause of diseases classified elsewhere; N32.81 Overactive bladder; I83.019 Varicose veins of right lower extremity with ulcer of unspecified site; E78.5 Hyperlipidemia, unspecified; E83.42 Hypomagnesemia; E87.6 Hypokalemia; F01.50 Vascular dementia, unspecified severity, without behavioral disturbance, psychotic disturbance, mood disturbance, and anxiety; Z79.899 Other long term (current) drug therapy; Z87.891 Personal history of nicotine dependence
CPT/HCPCS: 36415; 71045; 80048; 80053; 80061; 80329; 81001; 82803; 82962; 83605; 83690; 83735; 83880; 84145; 84436; 84443; 84484; 85007; 85014; 85018; 85025; 85048; 85049; 85610; 85730; 86140; 86803; 87040; 87077; 87086; 87088; 87186; 87636; 93005; 97162; 97165; 99285; J0696; J3475; J3480; J7030; J7120

== ENCOUNTER 2024-04-25 16:11 | Emergency (ER) | payer MEDICARE, SELFPAY ==
[2024-04-25 16:25] VITALS: BP 145/67; PULSE 77; O2SAT 98
[2024-04-25 16:26] VITALS: BP 139/84; PULSE 78; O2SAT 97
[2024-04-25 16:30] VITALS: BP 130/67; PULSE 79; RESP 21; O2SAT 98
[2024-04-25 16:34] VITALS: BP 139/84; PULSE 67; RESP 27; TEMP 36.5; O2SAT 98; BMI 26.4
--- NOTE | 2024-04-25 16:34 | XR_ITS ---
PROCEDURE INFORMATION: Exam: XR Chest Exam date and time: 04/25/2024 5:19 PM Age: 83 years old Clinical indication: Cough and shortness of breath; Additional info: jonathan Castanon TECHNIQUE: Imaging protocol: Radiologic exam of the chest. Views: 1 view. COMPARISON: CR XR CHEST PORTABLE 04/21/2024 12:42 PM FINDINGS: Lungs: Normal pulmonary expansion. Pulmonary vasculature grossly normal. No gross pulmonary infiltrates or edema pattern. Mild upper lobe hyperlucency bilaterally suspicious for changes of COPD. Pleural spaces: No pleural effusion. No pneumothorax. Mild pleuroparenchymal scarring in the pulmonary apices bilaterally. Heart/Mediastinum: Heart size normal. No tracheal/mediastinal shift. Vasculature: Mild aortic ectasia/tortuosity and calcific atherosclerosis. Bones/joints: No acute osseous abnormalities are identified. Mild thoracic spondylosis. IMPRESSION: No acute thoracic process.
[2024-04-25 16:46] LABS: Coronavirus 19, PCR Not Detected (NotDetected); Influenza A, PCR Not Detected (NotDetected); Influenza B, PCR Not Detected (NotDetected)
--- NOTE | 2024-04-25 17:03 | ED_ITS ---
Discharge Plan Disposition Patient Disposition: Home, Self-Care Prescriptions Prescriptions: New magnesium oxide 400 mg magnesium tablet 400 mg PO HS Qty: 30 2RF No Action multivitamin [Daily Multi-Vitamin] Tablet 1 tab PO DAILY dorzolamide-timolol 22.3-6.8 mg/mL drops 1 drp OP BID cefdinir 300 mg capsule 300 mg PO Q12H Qty: 10 0RF potassium chloride 10 mEq capsule, extended release 10 meq PO DAILY Qty: 30 0RF mirabegron [Myrbetriq] 25 mg tablet extended release 24 hr 25 mg PO DAILY Patient Comments: TAKE 1 TABLET BY MOUTH ONCE DAILY Referrals Follow up/Referrals: Cruz Hall MD [Primary Care Provider] - See instructions Activity Restrictions/Add. Instructions Additional Instructions/Restrictions: Call your family doctor to establish care for this visit to the emergency department and schedule follow-up within 48 hours to ensure improvement. If you have any worsening of your condition or any other concerning signs or symptoms, return to the emergency department or your primary care doctor for further evaluation. Magnesium each night Clinical Impressions Clinical Impression: Weakness Print Language Print Language: Jordanian Discharge ED Provider: Ismael Alvarado General Adult HPI General Chief complaint: Weakness Stated complaint: weakness loss of balance Time Seen by Provider: 04/25/24 16:17 Mode of Arrival: Wheelchair Source of Information: Patient and Relative Limitations: No Limitations Description of Symptoms (Recalled from ER Triage Doc. by RN): pt c/o weakness and SOA. pts daughter in law reports that she was d/c yesterday from inpt here. History of Present Illness HPI narrative: Please note that above description of symptoms, in this electronic medical record under categorization of recalled from ER triage doctor by RN are reflective of an initial nursing assessment, however, is not reflective of my full history and physical exam that was personally taken and clarified. Consequentially, this preceding description of symptoms, which may include the patient's categorized chief complaint in the EMR, do not reflect my personal clinical impression, and the ultimate description of history of present illness and patient stated complaints should be deferred to this section of the note. Unless stated otherwise or congruent with this section of the note, additional signs, symptoms, or incongruence should be interpreted as inaccurate with my clinical impression. Related Data Home Medications ?Medication ?Instructions ?Recorded ?Confirmed dorzolamide 22.3 mg-timolol 6.8 1 drp ophthalmic (eye) BID 11/06/21 04/21/24 mg/mL eye drops multivitamin (Daily Multi-Vitamin 1 tab PO DAILY 11/06/21 04/21/24 tablet) mirabegron 25 mg tablet,extended 25 mg PO DAILY 09/25/23 04/21/24 release 24 hr (Myrbetriq) Previous Rx's ?Medication ?Instructions ?Recorded cefdinir 300 mg capsule 300 mg PO Q12H #10 caps 04/24/24 potassium chloride 10 mEq 10 meq PO DAILY #30 caps 04/24/24 capsule,extended release magnesium oxide 400 mg PO HS #30 tabs 04/25/24 Allergies Allergy/AdvReac Type Severity Reaction Status Date / Time sulfamethoxazole (From Allergy Rash Verified 03/09/24 12:50 Bactrim) trimethoprim (From Bactrim) Allergy Rash Verified 03/09/24 12:50 PFSH PFSH Disclaimer: The information contained in this section may have been updated after the patient was seen, as this information can be updated by other users. Medical History (Updated 04/25/24 @ 19:01 by Ismael Alvarado MD) OAB (overactive bladder) HTN (hypertension) Lower extremity edema Glaucoma Osteoarthritis Vascular dementia Venous stasis ulcer Surgical History (Updated 04/21/24 @ 18:26 by Earnest Mosley MD) History of bladder surgery S/P bunionectomy Family History No significant family history Social History Smoking Status: Never smoker alcohol intake: never substance use type: denies use current occupational status: retired Travel in the last 8 weeks: Inside the [place] household members: family housing: house Have you lived/traveled outside US in past 30 days?: No Contact w/someone who lives/traveled outside US past 30 days?: No Exposure to someone with infectious disease in past 14 days?: No Do you have a fever (greater than 100.4 F or 38 C)?: No Have you tested positive for COVID-19: No Exposed to someone with COVID-19 in past 14 days?: No Do you have a sore throat?: No Do you have a cough?: No Do you have any weakness?: No Do you have any diarrhea?: No Are you experiencing any unusual bleeding?: No Do you have any muscle aches/pain?: No Do you have any abdominal pain?: No Are you experiencing loss of taste or smell?: No Other Medical History Have you received the Flu Vaccine for this season: No Have you received the Pneumonia Vaccine: No ROS Obtained: Yes All systems reviewed & no additional complaints except as documented Physical Exam General General appearance: alert Head Head exam: atraumatic and normocephalic Eye Eye exam: Present normal appearance, PERRL and EOMI Neck Neck exam: Present normal inspection, full ROM and trachea midline Respiratory Respiratory exam: Absent respiratory distress, wheezes, stridor, accessory muscle use or prolonged expiratory phase Cardiovascular Cardiovascular exam: Present other (Pulses equal symmetric in upper and lower extremities) Abdominal Exam Abdominal exam: Present soft; Absent distention, tenderness or pulsatile mass Extremities Exam Extremities exam: Absent edema Neurological Exam Neurological exam: Present alert, oriented X3 and CN II-XII intact; Absent motor sensory deficit Skin Skin exam: Present warm and dry; Absent diaphoresis or erythema Medical Decision Making Medical Records Medical records reviewed: Yes I reviewed the patient's medical records. Screening: Per USPSTF and CDC recommendations, given the prevalence of disease in our region, it is our hospital?s policy to screen for HIV and viral Hepatitis for all patients aged 18 and over and those with ongoing risk factors. Jah Inquiry Pt receiving controlled substance: No Jah was queried for this patient: No Vital Signs: 04/25/24 16:25 04/25/24 16:26 04/25/24 16:30 Temperature Temperature Source Pulse Rate 77 78 79 Pulse Rate [Left] Respiratory Rate 21 Blood Pressure 145/67 H 139/84 130/67 Blood Pressure [Right Arm] Blood Pressure Mean [Right Arm] Blood Pressure Source [Right Arm] Blood Pressure Position [Right Arm] 02 Sat by Pulse Oximetry 98 97 98 Oxygen Delivery Method Room Air Room Air Room Air 04/25/24 16:34 Temperature 97.7 F Temperature Source Oral Pulse Rate Pulse Rate [Left] 67 Respiratory Rate 27 H Blood Pressure Blood Pressure [Right Arm] 139/84 Blood Pressure Mean [Right Arm] 102 Blood Pressure Source [Right Arm] Automatic Cuff Blood Pressure Position [Right Arm] Sitting 02 Sat by Pulse Oximetry 98 Oxygen Delivery Method Room Air Lab Data Lab Results 04/25/24 16:41: SARS-CoV-2 (PCR) Not detected, Influenza A Untype (PCR) Not detected, Influenza Type B (PCR) Not detected 04/25/24 17:00: WBC 4.8 D, RBC 3.65 L, Hgb 10.6 L, Hct 32.5 L, MCV 89.0, MCH 29.0, MCHC 32.6, RDW 14.9, Plt Count 220, MPV 10.1, Neut % (Auto) 57.5, Lymph % (Auto) 26.1, Garrett % (Auto) 10.1 H, Eos % (Auto) 4.6, Baso % (Auto) 1.1, Neut # (Auto) 2.7, Lymph # (Auto) 1.2, Garrett # (Auto) 0.5, Eos # (Auto) 0.2, Baso # (Auto) 0.1, Sodium 136, Potassium 4.1, Chloride 101, Carbon Dioxide 27, Anion Gap 12.1, BUN 17 D, Creatinine 0.70, Estimated Creat Clear 43, Estimated GFR 80, Est GFR ( Amer) 97, Glucose 84, Calcium 8.7, Magnesium 1.5 L, Total Bilirubin 0.6, AST 89 H, ALT 49, Alkaline Phosphatase 64, Troponin I < 0.01, N T-Pro-B Natriuret Pep 880 H, Total Protein 6.1 L, Albumin 3.1 L, Globulin 3.0, A lbumin/Globulin Ratio 1.0 L, Salicylates < 1.0 L 04/25/24 17:22: VBG pH 7.33, VBG pCO2 42.8, VBG pO2 49.0 H, VBG HCO3 22.2 L, VBG Total CO2 23.5, VBG O2 Saturation 82.0 H, VBG Base Excess -3.7 L, VBG Lactic Acid 2.7 H 04/25/24 17:00 04/25/24 17:00 Orders (Tests/Meds): ORDERS Category Date Time Status XR chest portable Stat Exams 04/25/24 16:34 Completed Complete Blood Count Auto Diff Stat Lab 04/25/24 17:00 Completed Comprehensive Metabolic Panel Stat Lab 04/25/24 17:00 Completed Magnesium Stat Lab 04/25/24 17:00 Completed NT Pro Brain Natriuretic Pep. Stat Lab 04/25/24 17:00 Completed Rapid PCR Covid and Flu A/B Stat Lab 04/25/24 16:41 Completed Salicylate Stat Lab 04/25/24 17:00 Completed Troponin I Q3H Lab 04/25/24 19:45 Ordered Troponin I Q3H Lab 04/25/24 22:45 Ordered Troponin I Stat Lab 04/25/24 17:00 Completed Venous Blood Gas Stat RT 04/25/24 17:22 Completed Medical Decision Narrative: 83-year-old female presenting with slight decline from yesterday. Patient was seen by me a few days prior to this. Admitted for adult failure to thrive, confusion, weakness, urinary tract infection. Discharged yesterday, 04/24. Daughter states the patient was at home acting normally, ambulating, at her baseline. Today, appeared and seemed weak again. No changes in mental status, the patient does have mild cough that is nonproductive. Tolerating p.o. intake. No other changes. Patient's daughter called primary care provider, primary care provider recommended coming to the emergency department for repeat labs to make sure nothing is changed in the last 24 hours, so she presents today. Patient has no acute complaints. History was obtained via conversation with patient and daughter. On arrival, patient hemodynamically stable, alert, oriented only to person, appropriate, GCS 15, moving all extremities spontaneously, pupils equal and reactive to light. Full physical exam performed and significant for well-appearing female no acute distress. Mildly tachypneic. Speaking in full sentences. Abdomen nontender nondistended. No lower extremity edema. Patient actually ambulated in with her walker without any assistance. Daughter states that this is normal, but she just seems weaker than normal. Differential includes metabolic abnormality, endocrinologic abnormality, known urinary tract infection, untreated pathogen, sepsis, ACS, MO, among others. Patient placed on continuous cardiac monitoring and continuous pulse ox with initial blood pressure 145/67, heart rate 187, saturation 98% on room. Independent interpretation of EKG shows sinus rhythm 82 bpm with IL interval 132, QRS 77, QTc 431. Normal axis. No acute ischemic change. Workup independently interpreted and significant for nonactionable CBC or chemistry with normal kidney function. Magnesium low at 1.5, this was repleted p.o. Troponin and BNP negative, improving. Salicylate negative. Viral swab negative. Patient's urinalysis resulted with E. coli susceptible to cephalosporins. Patient currently on set. On independent interpretation of imaging, no acute intrathoracic process. See radiology read for full review of final results. On reevaluation, patient resting comfortably still in no acute distress and able to ambulate without assistance with her walker to the restroom and back. Because patient's magnesium low, repleted. It was recommended that they filler picker supplements at the pharmacy. Also recommended that she take probiotics with her antibiotic to prevent antibiotic associated diarrhea and weakness that may result from that. Patient's daughter voiced her understanding given patient presentation, workup, history, this most likely represents generalized weakness in the setting of urinary tract infection. Because patient at baseline without signs or symptoms of clinical decompensation, deemed appropriate for discharge. Results were relayed to patient family who voiced understanding and were agreeable to outpatient management and follow up. I discussed my clinical impression with patient family and answered all questions. At this time, the evidence for any other entities in the differential is insufficient to warrant any further testing or ED observation. This was explained as well. Advisory was given that persistent or worsening symptoms require further evaluation. I confirmed the understanding of this discussion. Utilities And Maintenance Supervisor disclaimer Much of this encounter note is an electronic washerette machine operator spoken language to printed text. Electronic washerette machine operator of the spoken language may permit errors. Although I have reviewed the note, some errors may still exist. Critical Care Critical Care Time Critical Care Time: No
--- NOTE | 2024-04-25 17:06 | ECG_ITS ---
APPROVED REPORT Exam: Resting ECG HR:82 bpm ECG Measurements Heart Rate 82 AXES NE 132 P 49 QRSd 77 QRS 66 QT 392 T 70 QTc 431 Conclusion SINUS RHYTHM Electronically signed by : WINNIE ABRAHAM, 04/25/2024 21:24:16
[2024-04-25 17:26] LABS: VBG Base Excess -3.7 mmol/L (-2.4-2.3); VBG HCO3 22.2 mmol/L (23-30); VBG PCO2 42.8 mmol/L (35-51); VBG PH 7.33 mmol/L (7.31-7.41); VBG Total CO2 23.5 mmol/L (23-27)
[2024-04-25 17:35] LABS: Lactate Venous 2.7 mmol/L (0.4-2.0)
[2024-04-25 18:17] LABS: Basophils # 0.1 K/mm3 (0-0.2); Basophils % 1.1 % (0.1-2.0); Eosinophils # 0.2 K/mm3 (0.0-0.4); Eosinophils % 4.6 % (0.1-12.0); Hematocrit 32.5 % (37.0-47.0); Hemoglobin 10.6 g/dL (12.2-16.2); Lymphocytes # 1.2 K/mm3 (0.7-4.5); Lymphocytes % 26.1 % (10-50); Mean Corpuscular HGB Conc 32.6 g/dL (31.8-35.4); Mean Platelet Volume 10.1 fl (7.4-10.4); Monocytes # 0.5 K/mm3 (0.1-1.0); Monocytes % 10.1 % (1.7-9.3); Neutrophils # 2.7 K/mm3 (1.8-7.8); Neutrophils % 57.5 % (37.0-80.0); Platelet Count 220 K/mm3 (142-424); Red Blood Count 3.65 M/mm3 (4.20-5.40); Red Cell Distribution Width 14.9 % (11.5-17.5); White Blood Count 4.8 K/mm3 (4.8-10.8)
[2024-04-25 18:18] LABS: Albumin Level 3.1 g/dl (3.5-5.0); Chloride 101 mmol/L (98-107)
[2024-04-25 18:19] LABS: Potassium 4.1 mmoL/L (3.5-5.1); Sodium 136 mmol/L (136-145)
[2024-04-25 18:21] LABS: Alanine Aminotransferase 49 U/L (12-78); Anion Gap 12.1 mEq/L (5-15); Aspartate Amino Transferase 89 U/L (14-36); Blood Urea Nitrogen 17 mg/dl (7-17); Carbon Dioxide 27 mmol/L (22.0-30.0); Creatinine Clearance Estimated 43 mL/min (50-200); Estimated Glomerular Filt Rate 80 ml/min (>60); GFR (African American) 97 ML/MIN (>60)
[2024-04-25 18:22] LABS: Alkaline Phosphatase 64 U/L (38-126); Bilirubin,Total 0.6 mg/dl (0.2-1.3); Calcium 8.7 mg/dl (8.4-10.2); Glucose 84 mg/dl (74-100); Magnesium 1.5 mg/dl (1.6-2.3); Total Protein,Serum 6.1 g/dl (6.3-8.2)
[2024-04-25 18:24] LABS: Salicylate < 1.0 mg/dL (2.0-20.0)
[2024-04-25 18:31] LABS: NT Pro Brain Natriuretic Pep. 880 pg/mL (0-450)
[2024-04-25 18:39] LABS: Troponin I < 0.01 ng/ml (0.00-0.034)
[2024-04-25] MEDS: MAGNESIUM OXIDE 400MG TABLET 800 MG PO (18:59)
[2024-04-25 19:11] VITALS: BP 139/84; PULSE 86; RESP 14; TEMP 36.7; O2SAT 99
== END 2024-04-25 19:12 | disposition home or self-care (01) ==
PROVIDERS: Emergency Provider Emergency Medicine; PCP Family Medicine
DX: R53.1 Weakness (principal); R06.02 Shortness of breath; R05.9 Cough, unspecified
CPT/HCPCS: 71045; 80053; 80329; 82803; 83735; 83880; 84484; 85025; 87636; 93005; 99283; G0480

== ENCOUNTER 2024-05-04 08:41 | Outpatient (CLI) | payer MEDICARE, SELFPAY ==
--- NOTE | 2024-05-04 08:47 | CA_ITS ---
FINAL REPORT TECHNIQUE: extremity venous duplex was performed with augmentation and compression. CLINICAL HISTORY: severe swelling of left leg after hospitalization and immobilization. COMPARISON: None FINDINGS: There is extensive thrombus in the left lower extremity, involving the common femoral vein, superficial femoral vein, popliteal and peroneal veins. No definite flow is identified, and these vessels are not compressible. IMPRESSION: Findings consistent with extensive deep venous thrombosis of the left lower extremity. These results were called to the office of Dr. Cruz Hall 05/04/2024 at 9:45 AM. Reviewed, Interpreted and Dictated by Shorty Ochoa MD Transcribed by Oumou Hernandez Authenticated and [facility]
== END 2024-05-04 23:59 | disposition home or self-care (01) ==
LOC: RT 08:42
PROVIDERS: PCP Family Medicine; Visit Provider Family Medicine
DX: M79.605 Pain in left leg (principal)
CPT/HCPCS: 93971